=== PATIENT | female | born 1950 | race Caucasian/White ===

== ENCOUNTER → 2019-11-24 10:52 | Outpatient (BNVA) | payer MEDICARE, SELFPAY | PROVIDERS: Family Provider Nurse Practitioner; PCP Nurse Practitioner; Visit Provider Nurse Practitioner | DX: I10 Essential (primary) hypertension (principal) | CPT/HCPCS: 80053; 80061; 81000; 84443; 85025 ==

== ENCOUNTER → 2020-01-18 11:23 | Outpatient (BNVA) | payer MEDICARE, SELFPAY | PROVIDERS: Family Provider Nurse Practitioner; PCP Nurse Practitioner; Visit Provider Nurse Practitioner | DX: Z11.59 Encounter for screening for other viral diseases (principal) | CPT/HCPCS: 87635 ==

== ENCOUNTER → 2020-06-07 12:14 | Outpatient (BNVA) | payer MEDICARE, SELFPAY | PROVIDERS: Family Provider Nurse Practitioner; PCP Nurse Practitioner; Visit Provider Nurse Practitioner | DX: I10 Essential (primary) hypertension (principal); F41.9 Anxiety disorder, unspecified; E55.9 Vitamin D deficiency, unspecified | CPT/HCPCS: 80053; 80061; 82306; 82607; 84443; 85025 ==

== ENCOUNTER → 2020-06-21 12:00 | Outpatient (BNVA) | payer MEDICARE, SELFPAY | PROVIDERS: Family Provider Nurse Practitioner; PCP Nurse Practitioner; Visit Provider Nurse Practitioner | DX: L98.9 Disorder of the skin and subcutaneous tissue, unspecified (principal) | CPT/HCPCS: 88305 ==

== ENCOUNTER 2020-11-09 11:37 | Emergency (ER) | payer MEDICARE, SELFPAY ==
[2020-11-09 11:38] VITALS: BMI 24.7
--- NOTE | 2020-11-09 11:58 | XRR_ITS ---
PROCEDURE INFORMATION: Exam: XR Chest Exam date and time: 11/09/2020 11:58 AM Age: 70 years old Clinical indication: Cough and dyspnea; Additional info: Dyspnea/cough TECHNIQUE: Imaging protocol: XR of the chest. Views: 1 view. COMPARISON: CR Chest 2 views* [id number] 03/16/2018 11:56 AM FINDINGS: Lungs: Unremarkable. No consolidation. Pleural spaces: Unremarkable. No pleural effusion. No pneumothorax. Heart/Mediastinum: Unremarkable. No cardiomegaly. Bones/joints: Unremarkable. XR/XR chest 1V portable [id number] IMPRESSION: No acute findings.
[2020-11-09 12:34] LABS: Add Urine Microscopic? NO; Charge for UA Resulting for Rev
[2020-11-09 12:43] LABS: Urine Appearance Clear (CLEAR); Urine Color Straw (Yellow)
[2020-11-09 12:44] LABS: Bilirubin Urine Neg (Negative); Blood Urine Neg (Negative); Glucose Urine UA Norm (Normal); Ketones Urine Negative (Negative); Nitrate Urine Negative (Negative); Protein Urine Neg (Negative); Sulfosalicylic Acid Urine Negative (Negative); pH Urine 8 (5-7)
[2020-11-09 12:45] LABS: Leukocyte Esterase Urine Negative (Negative); Urobilinogen Urine Norm (Negative)
[2020-11-09 12:46] VITALS: BP 134/85; PULSE 95; RESP 13; O2SAT 99
[2020-11-09 12:52] LABS: Basophils % 0.5 %; Eosinophils # 0.1 10^3/uL (0.0-0.8); Eosinophils % 0.9 %; Hematocrit 40.1 % (37.0-47.0); Hemoglobin 13.5 g/dL (11.5-15.3); Lymphocytes # 1.7 10^3/uL (0.8-4.8); Lymphocytes % 21.2 %; Mean Corpuscular HGB Conc 33.7 g/dL (30.0-36.0); Mean Corpuscular Hemoglobin 31.5 pg (28.0-34.0); Mean Corpuscular Volume 93.7 fL (81-99); Mean Platelet Volume 9.1 fL (7.4-10.4); Monocytes # 0.7 10^3/uL (0.2-0.9); Monocytes % 8.6 %; Neutrophils # 5.52 10^3/uL (1.8-7.7); Neutrophils % 68.4 %; Nucleated Red Blood Cells % 0 %; Platelet Count 242 10^3/cmm (130-400); Red Blood Count 4.28 10^6/uL (4.1-5.3); Red Cell Distribution Width 12.4 % (12.1-15.1); White Blood Count 8.1 10^3/uL (4.0-10.0)
--- NOTE | 2020-11-09 13:03 | W.ED.WEAKNES ---
HPI - Weakness General: Chief complaint: Weakness Stated complaint: UNCONTROLLED HTN/ ANXIOUS/ VERTIGO Time Seen by Provider: 11/09/20 11:50 History of Present Illness: HPI Narrative: 70-year-old female presents to the emergency room with complaints of generalized weakness and elevated blood pressure. She states she felt what she described as a hot her crazy with blood pressure being elevated she took a clonidine and doxepin. States she feels much better now her symptoms have resolved she never had any difficulty with speech or swallowing she never had any chest pain today. She does states she has gotten chest pain in the past for which she takes nitro because it is related to her anxiety. She also describes the doxepin is slowing her heart down and the clonidine as a jump starting it. She denies any shortness of breath no fever sweats or chills no abdominal pain no dysuria urgency or frequency. She has no focal neurologic deficits. At the time I seen the patient she has no symptoms whatsoever they all resolved prior to arrival. She had a vague generalized weakness then but it resolved she thought as her blood pressure came down. MD Complaint: generalized weakness Onset (ago): hour(s) Duration: intermittent and improved Location: generalized Severity: mild Relieving factors: none Exacerbating factors: none Associated symptoms: Denies chest pain, chills, confusion, melena, decreased appetite, diaphoresis, dysuria, easy bruising, fever(s), headache(s), myalgias, nausea, rash, short of breath, syncope or vomiting Review of Systems Const: Denies: fever(s), chills or diaphoresis ENMT: Denies: throat pain, ear or mastoid pain, nasal discharge or nasal congestion Card: Denies: chest pain or syncope Resp: Denies: dyspnea, productive cough or non-productive cough GI: Denies: nausea, vomiting or melena : Denies: dysuria Skin/Breast: Denies: rash or pruritus Neuro: Denies: headache(s) or confusion Grabiel/Lymph: Denies: easy bruising PFS ED PFSH: Medical History (Updated 11/09/20 @ 13:46 by Yordy Cavanaugh DO) Anxiety Hypertension Risk for coronary artery disease between 10% and 20% in next 10 years Seborrhea capitis in adult Surgical History Hx of breast biopsy left Hx of colonoscopy 2000 Hx of tonsillectomy Family History Mother Cancer Blood cancer age 52 Denies family history of Diabetes Hypertension Social History Smoking and tobacco status: current every day smoker cigarettes Packs smoked per day: 1 Second hand smoke exposure: Yes Smoking risk assessment/counseling performed?: Yes Alcohol intake: current Alcohol intake frequency: 0-2 Drinks per Day Alcohol type: wine Desire information about alcohol rehabilitation?: No Counseling given: No Desire information about substance/drug rehabilitation?: No Counseling given: No Adopted: No Caregiver/support person: No Lives independently: Yes Household members: none Housing: House Marital status: / service: No Current occupational exposures/hazards: No History of recent travel: No Current gender identity: Female Physical Exam Const: COMMON NORMALS: no acute distress GENERAL APPEARANCE: cooperative and comfortable ORIENTATION/CONSCIOUSNESS: Yes awake, Yes oriented to person, Yes oriented to place and Yes oriented to time HENMT: COMMON NORMALS: normocephalic, atraumatic, hearing grossly normal bilaterally, external ears normal, EAC's normal, TM's normal bilaterally and Normal nasal mucous membranes and turbinates present HEAD & SCALP: normocephalic and atraumatic NOSE: Normal nasal mucous membranes and turbinates present EXTERNAL EAR: Yes external ears normal EXTERNAL AUDITORY CANAL: EAC's normal TYMPANIC MEMBRANE: TM's normal bilaterally Eye: COMMON NORMALS: Equal, round and reactive pupils present, EOMs intact bilaterally, conjunctivae normal and no scleral icterus CONJUNCTIVA: Yes conjunctivae normal PUPIL: Yes Equal, round and reactive pupils present Neck/C-Spine: COMMON NORMALS: full ROM, no lymphadenopathy, supple and no JVD Resp: COMMON NORMALS: normal respiratory effort, No retractions, No use of accessory muscles and clear to auscultation bilaterally AUSCULTATION: clear to auscultation bilaterally Cardio: COMMON NORMALS: no JVD, regular rate, regular rhythm and No murmurs present (Cardio) RATE: regular rate RHYTHM: regular rhythm GI: COMMON NORMALS: Soft to palpation and No hepatosplenomegaly present AUSCULTATION: Yes normoactive bowel sounds PALPATION: Yes Soft to palpation, No Tenderness to palpation present (GI), No Guarding due to palpation present (GI) and Yes No hepatosplenomegaly present Extremity: COMMON NORMALS: normal to inspection, capillary refill normal, no clubbing, cyanosis or edema, no calf tenderness and no pedal edema Neuro: SENSORIUM/ORIENTATION: Yes oriented to person, Yes oriented to place and Yes oriented to time Skin: COMMON NORMALS: no rashes or lesions noted GENERAL SKIN EXAM: no rashes or lesions noted Course Vital Signs: Vital signs: Vital Signs Pulse Rate 95 11/09/20 14:06 Respiratory Rate 13 11/09/20 14:06 Blood Pressure 134/85 11/09/20 14:06 Pulse Oximetry 99 11/09/20 14:06 MDM - Weakness MDM Narrative: Medical decision making narrative: Patient relatively asymptomatic at this point she has no focal symptoms her blood pressure is resolved. Will discharge home. Lab Data: Attestation: I reviewed the patient's lab results. Labs: Lab Results 11/09/20 11/09/20 11/09/20 Range/Units 12:30 12:46 12:46 WBC 8.1 (4.0-10.0) 10^3/ uL RBC 4.28 (4.1-5.3) 10^6/u L Hgb 13.5 (11.5-15.3) g/dL Hct 40.1 (37.0-47.0) % MCV 93.7 (81-99) fL MCH 31.5 (28.0-34.0) pg MCHC 33.7 (30.0-36.0) g/dL RDW 12.4 (12.1-15.1) % Plt Count 242 (130-400) 10^3/c mm MPV 9.1 (7.4-10.4) fL Neut % (Auto) 68.4 % Lymph % (Auto) 21.2 % [place] % (Auto) 8.6 % Eos % (Auto) 0.9 % Baso % (Auto) 0.5 % Neut # (Auto) 5.52 (1.8-7.7) 10^3/u L Lymph # (Auto) 1.7 (0.8-4.8) 10^3/u L [place] # (Auto) 0.7 (0.2-0.9) 10^3/u L Eos # (Auto) 0.1 (0.0-0.8) 10^3/u L Baso # (Auto) 0.0 (0.0-0.1) 10^3/u L Nucleated RBC % (a uto) 0 % Nucleated RBCs # 0.0 /100WBC Sodium (136-145) mmol/L Potassium (3.5-5.1) mmol/L Chloride (98-107) mmol/L Carbon Dioxide (22-29) mmol/L Anion Gap (5-19) BUN (8-23) mg/dL Creatinine (0.5-0.9) mg/dL GFR Calculation Glucose (65-115) mg/dL Calculated Osmolal ity (285-295) mOsm/k g Lactic Acid 1.1 (0.5-2.2) mmol/L Calcium (8.5-10.5) mg/dL Total Bilirubin (0.15-1.2) mg/dL AST (0-32) U/L ALT (0-33) U/L Alkaline Phosphata se (35-105) IU/L Creatine Kinase (26-192) U/L Total Protein (6.6-8.7) g/dL Albumin (3.5-5.2) g/dL Globulin (1.3-4.6) g/dL Lipase (13-60) U/L Urine Color Straw (Yellow) Urine Appearance Clear (CLEAR) Urine pH 8 H (5-7) Ur Specific Gravit y 1.010 (1.005-1.030) Urine Protein Neg (Negative) Urine Glucose (UA) Norm (Normal) Urine Ketones Negative (Negative) Urine Blood Neg (Negative) Urine Nitrate Negative (Negative) Urine Bilirubin Neg (Negative) Prot Sulfosalicyli c Acd Negative (Negative) Urine Urobilinogen Norm (Negative) mg/dL Ur Leukocyte Paty ase Negative (Negative) 11/09/20 Range/Units 12:46 WBC (4.0-10.0) 10^3/ uL RBC (4.1-5.3) 10^6/u L Hgb (11.5-15.3) g/dL Hct (37.0-47.0) % MCV (81-99) fL MCH (28.0-34.0) pg MCHC (30.0-36.0) g/dL RDW (12.1-15.1) % Plt Count (130-400) 10^3/c mm MPV (7.4-10.4) fL Neut % (Auto) % Lymph % (Auto) % [place] % (Auto) % Eos % (Auto) % Baso % (Auto) % Neut # (Auto) (1.8-7.7) 10^3/u L Lymph # (Auto) (0.8-4.8) 10^3/u L [place] # (Auto) (0.2-0.9) 10^3/u L Eos # (Auto) (0.0-0.8) 10^3/u L Baso # (Auto) (0.0-0.1) 10^3/u L Nucleated RBC % (a uto) % Nucleated RBCs # /100WBC Sodium 134 L (136-145) mmol/L Potassium 3.8 (3.5-5.1) mmol/L Chloride 97 L (98-107) mmol/L Carbon Dioxide 28 (22-29) mmol/L Anion Gap 12.8 (5-19) BUN 11 (8-23) mg/dL Creatinine 0.6 (0.5-0.9) mg/dL GFR Calculation Not Reportable Glucose 100 (65-115) mg/dL Calculated Osmolal ity 277 L (285-295) mOsm/k g Lactic Acid (0.5-2.2) mmol/L Calcium 8.4 L (8.5-10.5) mg/dL Total Bilirubin 0.3 (0.15-1.2) mg/dL AST 17 (0-32) U/L ALT 15 (0-33) U/L Alkaline Phosphata se 86 (35-105) IU/L Creatine Kinase 59 (26-192) U/L Total Protein 6.7 (6.6-8.7) g/dL Albumin 4.4 (3.5-5.2) g/dL Globulin 2.3 (1.3-4.6) g/dL Lipase 38 (13-60) U/L Urine Color (Yellow) Urine Appearance (CLEAR) Urine pH (5-7) Ur Specific Gravit y (1.005-1.030) Urine Protein (Negative) Urine Glucose (UA) (Normal) Urine Ketones (Negative) Urine Blood (Negative) Urine Nitrate (Negative) Urine Bilirubin (Negative) Prot Sulfosalicyli c Acd (Negative) Urine Urobilinogen (Negative) mg/dL Ur Leukocyte Paty ase (Negative) Discharge Plan Discharge Patient Disposition: Home Clinical Impression: Hypertension, Anxiety Condition: Stable Prescriptions: No Action nystatin 100,000 unit/gram cream 1 applic TOPICAL BID PRN (Reason: Rash) RF: 0 triamcinolone acetonide 0.1 % cream 1 applic TOPICAL BID PRN (Reason: Rash) RF: 0 amlodipine 10 mg tablet 10 mg PO DAILY Qty: 30 RF: 5 clonidine HCl 0.1 mg tablet 0.1 mg PO BID PRN (Reason: hypertensive emergency) Qty: 60 RF: 5 doxepin 10 mg capsule 10 mg PO TID PRN (Reason: anxiety) Qty: 90 RF: 5 imipramine HCl 50 mg tablet 50 mg PO BID Qty: 60 RF: 5 metoprolol succinate 100 mg tablet extended release 24 hr 100 mg PO DAILY Qty: 30 RF: 5 meclizine 25 mg tablet 25 mg PO TID PRN (Reason: dizziness) Qty: 90 RF: 0 mupirocin 2 % ointment 1 applic topical BID Qty: 22 RF: 0 venlafaxine [Effexor XR] 37.5 mg capsule,extended release 24hr 37.5 mg PO DAILY Qty: 30 RF: 2 nitroglycerin 0.4 mg tablet, sublingual 0.4 mg SUBLINGUAL Q5M Qty: 25 RF: 0 Wal-Zyr (cetirizine) 10 mg tablet 10 mg PO DAILY PRN (Reason: Allergy Symptoms) RF: 0 Discharge Orders: Discharge ED (Routine); Ordered 11/09/20 Ordered By: Yordy Cavanaugh Referrals: Edil Christianson, [employer] [facility] [Primary Care Provider] - Discharge Diet: Usual diet Discharge Activity: Increase activity as tolerated Patient Instructions: Opioid Safety Coding Level of Care Code ED Adjunct Mathematics Instructor for Chg Fwd Exam Comprehensive
[2020-11-09 13:10] LABS: Lactic Sepsis W/Reflex 1.1 mmol/L (0.5-2.2)
[2020-11-09 13:18] LABS: Alanine Aminotransferase 15 U/L (0-33); Albumin Level 4.4 g/dL (3.5-5.2); Alkaline Phosphatase 86 IU/L (35-105); Anion Gap 12.8 (5-19); Aspartate Amino Transferase 17 U/L (0-32); Blood Urea Nitrogen 11 mg/dL (8-23); Calcium 8.4 mg/dL (8.5-10.5); Carbon Dioxide 28 mmol/L (22-29); Chloride 97 mmol/L (98-107); Creatine Phosphokinase 59 U/L (26-192); Globulin 2.3 g/dL (1.3-4.6); Glucose 100 mg/dL (65-115); Lipase 38 U/L (13-60); Osmolality Calculated 277 mOsm/kg (285-295); Potassium 3.8 mmol/L (3.5-5.1); Sodium 134 mmol/L (136-145); Total Bilirubin 0.3 mg/dL (0.15-1.2); Total Protein 6.7 g/dL (6.6-8.7)
[2020-11-09 14:06] VITALS: BP 134/85; PULSE 95; RESP 13; O2SAT 99
== END 2020-11-09 14:07 | disposition home or self-care (01) ==
PROVIDERS: Emergency Provider Family Medicine; PCP Nurse Practitioner
DX: I10 Essential (primary) hypertension (principal); F41.9 Anxiety disorder, unspecified; F17.210 Nicotine dependence, cigarettes, uncomplicated
CPT/HCPCS: 36415; 71045; 80053; 81003; 82550; 83605; 83690; 85025; 99283

== ENCOUNTER → 2020-11-13 14:05 | Outpatient (BNVA) | payer MEDICARE, SELFPAY | PROVIDERS: PCP Nurse Practitioner; Visit Provider Nurse Practitioner | DX: I10 Essential (primary) hypertension (principal); F41.9 Anxiety disorder, unspecified; R42 Dizziness and giddiness; E78.2 Mixed hyperlipidemia | CPT/HCPCS: 80061 ==

== ENCOUNTER → 2021-06-04 14:30 | Outpatient (BNVA) | payer MEDICARE, SELFPAY | PROVIDERS: PCP Nurse Practitioner; Visit Provider Nurse Practitioner | DX: I10 Essential (primary) hypertension (principal); F41.9 Anxiety disorder, unspecified; K21.9 Gastro-esophageal reflux disease without esophagitis | CPT/HCPCS: 80053; 81000; 84443; 85025 ==

== ENCOUNTER 2021-11-12 11:46 | Emergency (ER) | payer MEDICARE, SELFPAY ==
[2021-11-12 12:00] VITALS: BP 118/83; PULSE 88; RESP 16; TEMP 36.9; O2SAT 95; BMI 24.9
--- NOTE | 2021-11-12 12:04 | W.ED.FALL ---
HPI - Fall General: Chief Complaint: Fall Stated Complaint: fall/ rib pain Time Seen by Provider: 11/12/21 12:04 History of Present Illness: 71-year-old female was brought in by family for concerns of injury sustained during a fall last . Patient has a wound to her right knee with some surrounding swelling and ecchymosis, patient has right anterior rib tenderness with inspiratory pain, and a injury to her left distal index finger that is healing. Associated symptoms-after fall: Denies chest pain Review of Systems General: Reports: 10 or more systems reviewed and unremarkable except in HPI and below Card: Denies: chest pain Resp: Reports: pain on inspiration Musc: Reports: joint pain (Right knee), joint swelling (Right knee) and other (Right anterior rib pain,) Skin/Breast: Reports: other (Abrasion to right knee) PFS ED PFSH: Medical History (Updated 11/12/21 @ 12:50 by NIKO Carlton) Anxiety Hypertension Risk for coronary artery disease between 10% and 20% in next 10 years Seborrhea capitis in adult Surgical History Hx of breast biopsy left Hx of colonoscopy 2000 Hx of tonsillectomy Family History Mother Cancer Blood cancer age 52 Denies family history of Diabetes Hypertension Social History Smoking and tobacco status: current every day smoker cigarettes Packs smoked per day: 1 Second hand smoke exposure: Yes Smoking risk assessment/counseling performed?: Yes Alcohol intake: current Alcohol intake frequency: 0-2 Drinks per Day Alcohol type: wine Desire information about alcohol rehabilitation?: No Counseling given: No Desire information about substance/drug rehabilitation?: No Counseling given: No Adopted: No Caregiver/support person: No Lives independently: Yes Household members: none Housing: House Marital status: / service: No Current occupational exposures/hazards: No History of recent travel: No Current gender identity: Female Physical Exam Const: COMMON NORMALS: alert HENMT: COMMON NORMALS: normocephalic and atraumatic HEAD & SCALP: normocephalic and atraumatic Neck/C-Spine: COMMON NORMALS: full ROM CERVICAL SPINE: No Cervical spine tenderness Chest: CHEST: Yes tenderness rib (Right lower anterior) Resp: COMMON NORMALS: normal respiratory effort Cardio: COMMON NORMALS: regular rate RATE: regular rate GI: COMMON NORMALS: Soft to palpation and non-tender PALPATION: Yes Soft to palpation Extremity: RIGHT LOWER EXTREMITY: Yes knee joint (Mild swelling and ecchymosis with anterior abrasion) Right knee: Yes inspection, Yes palpation and Yes ROM Neuro: SENSORIUM/ORIENTATION: Yes alert Skin: TRAUMA: abrasion (Right anterior knee) Course Vital Signs: Vital signs: Vital Signs Temperature 98.4 F 11/12/21 12:00 Pulse Rate 88 11/12/21 12:00 Respiratory Rate 16 11/12/21 12:00 Blood Pressure 118/83 11/12/21 12:00 Pulse Oximetry 95 11/12/21 12:00 Oxygen Delivery Me thod 11/12/21 12:00 MDM - Fall Medical Decision Making 71-year-old female comes in today for complaints of injury to the right rib and right knee. Patient had fallen 4 days ago last evening when she had walked outside to the garden. Since then patient has had increased pain to the right anterior rib with sensation of crepitus. Patient also reports some knee pain but has been up ambulating with a walker with minimal to no difficulty. On exam there is an abrasion to the right knee, tenderness on palpation of the right anterior ribs. Respirations are decreased in the bases. Vital signs are normal. Differential diagnosis includes but not limited to fracture, contusion, abrasions, pneumonia. Chest x-ray notes some mild atelectasis to the right lower lung and a fracture of the 10th rib. X-ray of the right knee notes a comminuted mildly displaced fracture of the patella. Reviewed exam with patient with recommendations for treatment with incentive spirometer and doxycycline to cover for infection of the abrasions to the right knee. We will have patient follow-up with orthopedics for further treatment and return to ER for new concerns. Lab Data Radiology Impressions Ribs X-Ray 11/12/21 12:05 IMPRESSION: Right 10th rib fracture. Knee X-Ray 11/12/21 12:13 IMPRESSION: Mildly displaced comminuted fracture of the patella. Discharge Plan Discharge Patient Disposition: Home Clinical Impression: Fall Qualifiers: Encounter type: initial encounter Qualified Code(s): W19.XXXA - Unspecified fall, initial encounter Closed rib fracture Qualifiers: Encounter type: initial encounter Rib fracture type: single rib Laterality: right Qualified Code(s): S22.31XA - Fracture of one rib, right side, initial encounter for closed fracture Fracture of patella, closed Qualifiers: Encounter type: initial encounter Fracture morphology: comminuted Fracture alignment: nondisplaced Laterality: right Qualified Code(s): S82.044A - Nondisplaced comminuted fracture of right patella, initial encounter for closed fracture Condition: Stable Prescriptions: New doxycycline monohydrate 100 mg capsule 100 mg PO BID 10 Days Qty: 20 0RF No Action nystatin 100,000 unit/gram cream 1 applic TOPICAL BID PRN (Reason: Rash) triamcinolone acetonide 0.1 % cream 1 applic TOPICAL BID PRN (Reason: Rash) clonidine HCl 0.1 mg tablet 0.1 mg PO BID PRN (Reason: hypertensive emergency) Qty: 60 5RF meclizine 25 mg tablet 25 mg PO TID PRN (Reason: dizziness) Qty: 90 0RF venlafaxine [Effexor XR] 37.5 mg capsule,extended release 24hr 37.5 mg PO .2 times day Qty: 60 5RF amlodipine 10 mg tablet 10 mg PO DAILY Qty: 30 5RF doxepin 10 mg capsule 10 mg PO TID PRN (Reason: anxiety) Qty: 90 5RF imipramine HCl 50 mg tablet 50 mg PO BID Qty: 60 5RF metoprolol succinate 100 mg tablet extended release 24 hr 100 mg PO DAILY Qty: 30 5RF famotidine [Pepcid] 20 mg tablet 20 mg PO BID Qty: 60 2RF mupirocin 2 % ointment 1 applic topical BID Qty: 22 0RF nitroglycerin 0.4 mg tablet, sublingual 0.4 mg SUBLINGUAL Q5M Qty: 25 0RF Rx Instructions: chest pain as directed Wal-Zyr (cetirizine) 10 mg tablet 10 mg PO DAILY PRN (Reason: Allergy Symptoms) Discharge Orders: Discharge ED (Routine); Ordered 11/12/21 Ordered By: Josef Webster Referrals: Edil Christianson, [employer] [Primary Care Provider] - Discharge Diet: Usual diet Patient Instructions: Rib Fracture (ED), Patellar Fracture (ED) Activity Restrictions/Additional Instructions: Continue using walker for ambulation. Use acetaminophen, ice or heat for further pain relief. Drink plenty of water with antibiotic twice daily for the next 7 to 10 days. Follow-up with primary care for new concerns. Return to ED for worsening symptoms such as fever greater than 100.4, increasing redness and swelling of the knee, or increased shortness of breath. Coding Level of Care Code ED Certified Prosthetist/Orthotist for Farrah Fwd Exam Comprehensive
--- NOTE | 2021-11-12 12:05 | XR_ITS ---
WS: [id number] XR ribs RT mn 3V w CXR1V [id number] REASON FOR EXAM: fall injury, rib pain, include CXR FINDINGS: Minimally displaced anterolateral right 10th rib fracture. No pleural fluid or pneumothorax. No other acute chest abnormality. XR/XR ribs RT mn 3V w CXR1V [id number] IMPRESSION: Right 10th rib fracture.
--- NOTE | 2021-11-12 12:13 | XRR_ITS ---
PROCEDURE INFORMATION: Exam: XR Right Knee Exam date and time: 11/12/2021 12:29 PM Age: 71 years old Clinical indication: Injury or trauma; Fall; Blunt trauma; Knee; Right; Additional info: Fall injury TECHNIQUE: Imaging protocol: Radiologic exam of the Right knee. Views: 3 views. COMPARISON: No relevant prior studies available. FINDINGS: Bones/joints: There is a comminuted fracture of the patella with about 2.5 mm of maximum displacement. The distal femur and proximal tibia are intact. Soft tissues: Normal. XR/XR knee RT 3V* [id number] IMPRESSION: Mildly displaced comminuted fracture of the patella.
[2021-11-12] MEDS: doxycycline 100 mg Tablet PO (13:38)
--- NOTE | 2021-11-13 16:20 | DCPLANNER ---
Addendum entered by Molly Momin 11/26/21 13:33: Patient had a follow up appointment scheduled for 11.18.21 with ortho - patient did attend appointment. Addendum entered by Molly Momin 11/15/21 13:04: Patient has a follow up appointment scheduled for Thursday, November 18, 2021 at 8:[address] Montes at ortho. Clinic will call patient with appointment information. Original Note: manager multimedia had message to schedule a follow up appointment for patient with ortho. manager multimedia sent patients information to the front office staff at ortho. Patients information will be printed. Clinic will call patient with appointment information.
== END 2021-11-12 13:38 | disposition home or self-care (01) ==
PROVIDERS: Emergency Provider Nurse Practitioner Family; PCP Nurse Practitioner
DX: S22.31XA Fracture of one rib, right side, initial encounter for closed fracture (principal); S82.044A Nondisplaced comminuted fracture of right patella, initial encounter for closed fracture; I10 Essential (primary) hypertension; F17.210 Nicotine dependence, cigarettes, uncomplicated; W19.XXXA Unspecified fall, initial encounter
CPT/HCPCS: 71101; 73562; 99283

== ENCOUNTER → 2021-11-18 08:35 | Outpatient (BNVA) | payer MEDICARE, SELFPAY | PROVIDERS: PCP Nurse Practitioner; Visit Provider Specialist | DX: S82.044A Nondisplaced comminuted fracture of right patella, initial encounter for closed fracture (principal); W01.0XXA Fall on same level from slipping, tripping and stumbling without subsequent striking against object, initial encounter; Y93.H2 Activity, gardening and landscaping | CPT/HCPCS: 27520; 73562; 99203 ==

== ENCOUNTER 2021-11-18 14:44 | Outpatient (CLI) | payer MEDICARE, SELFPAY | END 2021-11-18 14:45 | disposition home or self-care (01) | LOC: SPT 14:45 | PROVIDERS: PCP Nurse Practitioner; Visit Provider Specialist | DX: Z46.89 Encounter for fitting and adjustment of other specified devices (principal); S82.001D Unspecified fracture of right patella, subsequent encounter for closed fracture with routine healing; X58.XXXD Exposure to other specified factors, subsequent encounter | CPT/HCPCS: 97760; L1812 ==

== ENCOUNTER → 2021-11-27 14:43 | Outpatient (BNVA) | payer MEDICARE, SELFPAY | PROVIDERS: PCP Nurse Practitioner; Visit Provider Nurse Practitioner | DX: Z12.39 Encounter for other screening for malignant neoplasm of breast (principal); Z78.0 Asymptomatic menopausal state; E78.2 Mixed hyperlipidemia; I10 Essential (primary) hypertension; F41.9 Anxiety disorder, unspecified; K21.9 Gastro-esophageal reflux disease without esophagitis | CPT/HCPCS: 80053; 80061; 84443; 85025 ==

== ENCOUNTER → 2021-12-11 15:30 | Outpatient (BNVA) | payer MEDICARE, SELFPAY | PROVIDERS: PCP Nurse Practitioner; Visit Provider Specialist | DX: S82.044D Nondisplaced comminuted fracture of right patella, subsequent encounter for closed fracture with routine healing (principal); W01.0XXD Fall on same level from slipping, tripping and stumbling without subsequent striking against object, subsequent encounter | CPT/HCPCS: 73560; 99024 ==

== ENCOUNTER → 2022-01-08 11:47 | Outpatient (BNVA) | payer MEDICARE, SELFPAY | PROVIDERS: PCP Nurse Practitioner; Visit Provider Nurse Practitioner | DX: E87.1 Hypo-osmolality and hyponatremia (principal) | CPT/HCPCS: 80048 ==

== ENCOUNTER → 2022-01-15 14:04 | Outpatient (BNVA) | payer MEDICARE, SELFPAY | PROVIDERS: PCP Nurse Practitioner; Visit Provider Specialist | DX: S82.044D Nondisplaced comminuted fracture of right patella, subsequent encounter for closed fracture with routine healing (principal); X58.XXXD Exposure to other specified factors, subsequent encounter | CPT/HCPCS: 73562; 99024 ==

== ENCOUNTER 2022-01-22 12:43 | Outpatient (CLI) | payer MEDICARE, SELFPAY ==
--- NOTE | 2022-01-22 12:48 | XR_ITS ---
WS: [id number] DEXA (DUAL ENERGY X-RAY ABSORPTIOMETRY) Bone mineral density was performed using a GeoVax machine. HISTORY: Z78.0 - Asymptomatic menopausal state COMPARISON: None available. Lumbar spine BMD (L1-L4): 0.786 g/cm2 T score: -3.3 Z score: -1.6 Total hip BMD: Left: 0.627 g/cm2. T score: -3.0 Z score: -1.4 Right: 0.618 g/cm2. T score: -3.1 Z score: -1.4 10 year probability of a major osteoporotic fracture is 37.7%. XR/XR DEXA axial skeleton* [id number] IMPRESSION: OSTEOPOROSIS based upon the WHO classification for females.
--- NOTE | 2022-01-22 13:06 | MM_ITS ---
WS: [id number] BILATERAL 3D TOMOSYNTHESIS DIGITAL SCREENING MAMMOGRAPHY WITH CAD CLINICAL INFORMATION: SCREEN HISTORY: Screening mammogram. No current complaints. COMPARISON: 2016. TECHNIQUE: Bilateral CC and MLO views. FINDINGS: The breasts are composed of heterogeneous fibroglandular density tissue, which can limit the detectio n of small underlying mass lesions. Nodular breast tissue LEFT breast cysts in appearance to 2016. Ar chitectural distortion upper outer LEFT breast due to prior lumpectomy is unchanged. This was previou sly evaluated with ultrasound. No suspicious mass, asymmetry, calcifications, or architectural distor tion. No evidence of malignancy. Lucent centered calcification RIGHT breast. Vascular calcification. MM/[place] [id number] IMPRESSION: BI-RADS: 2-Benign FOLLOW UP: 1 Year Follow-up Recommend return to annual screening mammography.
== END 2022-01-22 12:44 | disposition home or self-care (01) ==
LOC: RAD 12:43
PROVIDERS: PCP Nurse Practitioner; Visit Provider Nurse Practitioner
DX: Z12.31 Encounter for screening mammogram for malignant neoplasm of breast (principal); Z78.0 Asymptomatic menopausal state; M81.0 Age-related osteoporosis without current pathological fracture
CPT/HCPCS: 77063; 77067; 77080

== ENCOUNTER → 2022-02-25 15:38 | Outpatient (BNVA) | payer MEDICARE, SELFPAY | PROVIDERS: PCP Nurse Practitioner; Visit Provider Nurse Practitioner | DX: L98.9 Disorder of the skin and subcutaneous tissue, unspecified (principal) | CPT/HCPCS: 88304 ==

== ENCOUNTER → 2022-06-11 09:54 | Outpatient (BNVA) | payer MEDICARE, SELFPAY | PROVIDERS: PCP Nurse Practitioner; Visit Provider Nurse Practitioner Family | DX: R39.9 Unspecified symptoms and signs involving the genitourinary system (principal); K59.00 Constipation, unspecified; E87.1 Hypo-osmolality and hyponatremia; I10 Essential (primary) hypertension | CPT/HCPCS: 74018; 80053; 80061; 81000; 84443; 85025 ==

== ENCOUNTER → 2022-10-30 11:06 | Outpatient (BNVA) | payer MEDICARE, SELFPAY | PROVIDERS: PCP Nurse Practitioner; Visit Provider Nurse Practitioner Family | DX: E78.2 Mixed hyperlipidemia (principal) | CPT/HCPCS: 80053; 80061; 84443; 85025 ==

== ENCOUNTER → 2022-12-03 11:09 | Outpatient (BNVA) | payer MEDICARE, SELFPAY | PROVIDERS: PCP Nurse Practitioner; Visit Provider Nurse Practitioner Family | DX: S40.262A Insect bite (nonvenomous) of left shoulder, initial encounter (principal); S30.860A Insect bite (nonvenomous) of lower back and pelvis, initial encounter; L82.0 Inflamed seborrheic keratosis; L57.0 Actinic keratosis; L57.8 Other skin changes due to chronic exposure to nonionizing radiation; S50.912A Unspecified superficial injury of left forearm, initial encounter; L81.4 Other melanin hyperpigmentation; Z85.828 Personal history of other malignant neoplasm of skin; Y99.9 Unspecified external cause status | CPT/HCPCS: 17000; 17003; 17110; 99204 ==

== ENCOUNTER 2023-02-24 19:49 | Emergency (ER) | payer MEDICARE, SELFPAY ==
--- NOTE | 2023-02-24 19:52 | XRR_ITS ---
PROCEDURE INFORMATION: Exam: XR Left Wrist Exam date and time: 02/24/2023 8:58 PM Age: 72 years old Clinical indication: Injury or trauma; Fall; Fracture, traumatic injury; Closed fracture; Wrist; Left; Additional info: Fall pain TECHNIQUE: Imaging protocol: Radiologic exam of the left wrist. Views: 3 or more views. COMPARISON: No relevant prior studies available. FINDINGS: Bones/joints: Dorsally angulated fracture of the distal left radial metaphysis. Minimally displaced avulsion fracture of the ulnar styloid. The bones are osteopenic. Soft tissues: Normal. XR/XR wrist LT min 3V* [id number] IMPRESSION: 1. Dorsally angulated fracture of the distal left radial metaphysis. 2. Minimally displaced avulsion fracture of the ulnar styloid.
[2023-02-24 20:06] VITALS: BP 113/74; PULSE 70; RESP 16; TEMP 36.5; O2SAT 93; BMI 24.7
--- NOTE | 2023-02-24 20:20 | ED_ITS ---
HPI - Extremity Problem General: Chief complaint: Extremity Injury, Upper Stated complaint: fell, left wrist injury Time Seen by Provider: 02/24/23 19:59 History of Present Illness: 72-year-old female comes in today with injury to the left wrist. Patient reports she was walking across her yard when she tripped and fell catching herself with outstretched arms. Patient injured her left wrist and has pain and discomfort there. No obvious deformity is noted to the wrist but there is radial swelling and tenderness. Patient takes medications for blood pressure, GERD, mental health disorder, constipation,. Patient is currently a tobacco nicotine every day smoker. Review of Systems General: Reports: 10 or more systems reviewed and unremarkable except in HPI and below Musc: Reports: extremity pain and extremity swelling PFSH ED PFSH: Medical History Anxiety Colon cancer screening History of nonmelanoma skin cancer Hypertension Risk for coronary artery disease between 10% and 20% in next 10 years Seborrhea capitis in adult Surgical History Hx of breast biopsy left Hx of colonoscopy 2000 Hx of tonsillectomy Family History Mother Cancer Blood cancer age 52 Denies family history of Diabetes Hypertension Social History Smoking and tobacco/nicotine status: current every day tobacco/nicotine user cigarettes Packs smoked per day: 1 Second hand smoke exposure: Yes Alcohol intake: current Alcohol intake frequency: 0-2 Drinks per Day Alcohol type: wine Substance/Drug Use: unknown Adopted: No Caregiver/support person: No Lives independently: Yes Household members: none Housing: House Marital status: / service: No Current occupational exposures/hazards: No Do you think of yourself as: Straight/Heterosexual Current gender identity: Female Physical Exam Const: COMMON NORMALS: alert HENMT: COMMON NORMALS: normocephalic HEAD & SCALP: normocephalic Neck/C-Spine: COMMON NORMALS: full ROM Resp: COMMON NORMALS: normal respiratory effort and clear to auscultation bilaterally AUSCULTATION: clear to auscultation bilaterally Cardio: COMMON NORMALS: regular rate and regular rhythm RATE: regular rate RHYTHM: regular rhythm Back/Pelvis: COMMON NORMALS: thoracic and lumbar spine normal to inspection Extremity: LEFT UPPER EXTREMITY: Yes wrist (Radial tenderness and swelling, positive pedal pulses and sensation) Left wrist: Yes neurovascular exam Neuro: SENSORIUM/ORIENTATION: Yes alert Course Vital Signs: Vital signs: Vital Signs Temperature 97.7 F 02/24/23 20:06 Pulse Rate 71 02/24/23 20:49 Respiratory Rate 16 02/24/23 20:49 Blood Pressure 121/70 02/24/23 20:49 Pulse Oximetry 98 02/24/23 20:49 Oxygen Delivery Me thod Room Air 02/24/23 20:38 MDM - Extremity (Nontraumatic) Medical Decision Making 72-year-old female comes in today with injury to the left wrist. On exam patient has some swelling and tenderness to the radial aspect of her wrist with some mild swelling. Patient has strong pulses and distal sensation is intact. Range of motion is limited due to pain and discomfort. Differential diagnosis includes not limited to fracture, dislocation, sprain. X-ray noted a distal radial fracture, ulnar styloid fracture. Mild dorsal angulation was noted to the fracture. Patient was placed in a volar splint. Case management was requested to assist with follow-up appointment with orthopedics. Patient and family both reported understanding of care plan and need for follow-up or return to the ER. Lab Data Radiology Impressions Wrist X-Ray 02/24/23 19:52 IMPRESSION: 1. Dorsally angulated fracture of the distal left radial metaphysis. 2. Minimally displaced avulsion fracture of the ulnar styloid. All radiology interpretation(s) finalized by discharge Discharge Plan Discharge Patient Disposition: Home Clinical Impression: Radial fracture Qualifiers: Encounter type: initial encounter Radius location: distal Fracture type: closed Fracture morphology: other fracture Laterality: left Qualified Code(s): S52.592A - Other fractures of lower end of left radius, initial encounter for closed fracture Condition: Stable Prescriptions: No Action nystatin 100,000 unit/gram cream 1 applic TOPICAL BID PRN (Reason: Rash) triamcinolone acetonide 0.1 % cream 1 applic TOPICAL BID PRN (Reason: Rash) meclizine 25 mg tablet 25 mg PO TID PRN (Reason: dizziness) Qty: 90 0RF mupirocin 2 % ointment 1 applic topical BID Qty: 22 0RF doxycycline hyclate 100 mg capsule 100 mg PO BID Qty: 14 0RF venlafaxine [Effexor XR] 37.5 mg capsule,extended release 24hr 37.5 mg PO .2 times day Qty: 60 5RF metoprolol succinate 100 mg tablet extended release 24 hr 100 mg PO DAILY Qty: 30 5RF famotidine [Pepcid] 20 mg tablet 20 mg PO BID Qty: 60 5RF doxepin 10 mg capsule 10 mg PO TID PRN (Reason: anxiety) Qty: 90 5RF clonidine HCl 0.1 mg tablet 0.1 mg PO BID PRN (Reason: hypertensive emergency) Qty: 60 5RF amlodipine 10 mg tablet 10 mg PO DAILY Qty: 30 5RF imipramine HCl 50 mg tablet 50 mg PO BID Qty: 60 5RF nitroglycerin 0.4 mg tablet, sublingual 0.4 mg SUBLINGUAL Q5M Qty: 25 0RF Rx Instructions: chest pain as directed sodium chloride 1 gram tablet 1,000 mg PO DAILY Qty: 30 2RF calcium carbonate-vitamin D3 [Os-Davie 500 + D3] 500 mg-15 mcg (600 unit) tablet 1 tab PO .2 times day Qty: 60 5RF lactulose 10 gram/15 mL (15 mL) solution 20 g PO BID 2 Days Qty: 120 0RF polyethylene glycol 3350 [Miralax] 17 gram/dose powder 17 g PO DAILY Qty: 510 2RF Discharge Orders: Discharge ED (Routine); Ordered 02/24/23 Ordered By: Josef Webster Referrals: Edil Christianson, [facility] [Primary Care Provider] - Discharge Diet: Usual diet Discharge Activity: Increase activity as tolerated Patient Instructions: Wrist Fracture in Adults (ED) Activity Restrictions/Additional Instructions: Keep splint clean and dry. Case management will contact you regarding follow-up appointment with orthopedics office. Use acetaminophen or ibuprofen as needed for pain. Use ice packs for further pain relief. Follow-up with primary care as needed. Return to ED for new concerns. Coding Level of Care Code ED Certified Ethical Hacker for Farrah Stringer
[2023-02-24 20:38] VITALS: RESP 18; O2SAT 98
[2023-02-24] MEDS: acetaminophen 500 mg Tablet 1000 MG PO (20:48)
[2023-02-24 20:49] VITALS: BP 121/70; PULSE 71; RESP 16; O2SAT 98
--- NOTE | 2023-02-25 08:59 | DCPLANNER ---
Message sent to Ortho for a follow up on a distal radial fx.
== END 2023-02-24 20:50 | disposition home or self-care (01) ==
PROVIDERS: Emergency Provider Nurse Practitioner Family; PCP Nurse Practitioner
DX: S52.592A Other fractures of lower end of left radius, initial encounter for closed fracture (principal); S59.292A Other physeal fracture of lower end of radius, left arm, initial encounter for closed fracture; S52.612A Displaced fracture of left ulna styloid process, initial encounter for closed fracture; F17.210 Nicotine dependence, cigarettes, uncomplicated; I10 Essential (primary) hypertension; W01.0XXA Fall on same level from slipping, tripping and stumbling without subsequent striking against object, initial encounter
CPT/HCPCS: 29125; 73110; 99283

== ENCOUNTER → 2023-02-25 14:48 | Outpatient (BNVA) | payer MEDICARE, SELFPAY | PROVIDERS: PCP Nurse Practitioner; Referring Provider Nurse Practitioner Family; Visit Provider Nurse Practitioner | DX: S52.532A Colles' fracture of left radius, initial encounter for closed fracture; S52.612A Displaced fracture of left ulna styloid process, initial encounter for closed fracture; W01.0XXA Fall on same level from slipping, tripping and stumbling without subsequent striking against object, initial encounter | CPT/HCPCS: 25530; 25600; 29075; 73100; 99214 ==

== ENCOUNTER → 2023-03-11 13:59 | Outpatient (BNVA) | payer MEDICARE, SELFPAY | PROVIDERS: PCP Nurse Practitioner; Visit Provider Nurse Practitioner | DX: S52.532D Colles' fracture of left radius, subsequent encounter for closed fracture with routine healing; S52.612D Displaced fracture of left ulna styloid process, subsequent encounter for closed fracture with routine healing; W01.0XXD Fall on same level from slipping, tripping and stumbling without subsequent striking against object, subsequent encounter | CPT/HCPCS: 73110; 99024 ==

== ENCOUNTER → 2023-03-25 14:29 | Outpatient (BNVA) | payer MEDICARE, SELFPAY | PROVIDERS: PCP Nurse Practitioner; Visit Provider Nurse Practitioner | DX: S52.532A Colles' fracture of left radius, initial encounter for closed fracture; S52.612A Displaced fracture of left ulna styloid process, initial encounter for closed fracture; W01.0XXA Fall on same level from slipping, tripping and stumbling without subsequent striking against object, initial encounter | CPT/HCPCS: 73110; 99024 ==

== ENCOUNTER 2023-03-26 13:18 | Day surgery (SDC) | payer MEDICARE, SELFPAY ==
[2023-03-26] VITALS (15 sets, daily range): BP systolic 105–170; BP diastolic 57–94; PULSE 60–79; RESP 15–18; TEMP 36.1–36.4; O2SAT 92–100
--- NOTE | 2023-03-26 | XR_ITS ---
WS: [id number] INTRAOPERATIVE TECHNIQUE: 3 Spot fluoroscopic images for intraoperative purposes. FLUOROSCOPY TIME: 88.9 seconds CLINICAL INFORMATION: ALEX PICS COMPARISON: None. FINDINGS: Intraoperative plate and screw fixation distal radius. Hardware appears in good position. IMPRESSION: Images obtained for intraoperative purposes.
[2023-03-26] MEDS: gabapentin 300 mg Capsule PO (13:48)
[2023-03-26] MEDS: CELEcoxib 200 mg Capsule 400 MG PO (13:48)
[2023-03-26] MEDS: acetaminophen 1,000 MG/100 ML PIGGYBACK 400 MG IV (13:48)
[2023-03-26] MEDS: sodium chloride 0.9% 1,000 ML 30 ML IV (13:49)
--- NOTE | 2023-03-26 14:44 | P.ANESASSM_ITS ---
Pre-Anesthetic Assessment Height/Weight: Height 1.6 m Weight 66.224 kg Temp Pulse Resp BP Pulse Ox O2 Del Method 97 F L 79 18 136/86 97 Room Air 03/26/23 13:25 03/26/23 13:25 03/26/23 13:25 03/26/23 13:25 03/26/23 13:25 03/26/23 13:43 Operation Date: 03/26/23 14:55 Proposed Procedures p ORIF Wrist ORIF Distal Radius(Left) - America Montes MD Familial anesthetic complications: none Was Beta Danyel taken within 24 hours: Yes Was Clonidine taken within 24 hours: Yes Last intake: Intake Last Liquid Date 03/26/23 Last Liquid Time 08:30 Last Solid Date 03/25/23 Last Solid Time 18:00 Social Alcohol and Tobacco Exam alert, oriented x 3 and regular rate & rhythm Airway Submandibular: within normal limits Cervical ROM: within normal limits Mallampati: Class II Dentition: full Pulmonary Chronic Obstructive Pulmonary Disease CV/HEM Hypertension GI Gastroesophageal Reflux Disease Metabolic Hyperlipidemia Neuropsych Anxiety and Depression Anesthetic Plan ASA status: 3 Anesthesia: General and Regional (specify below) (Discussed left supraclavicular blk) Medications/Allergies Home Medications Medication Instructions Recorded Confirmed Last Taken Type triamcinolone acetonide 0.1 % 1 applic topical BID PRN Rash 04/14/19 03/26/23 03/24/23 History topical cream nitroglycerin 0.4 mg sublingual 0.4 mg sublingual Q5M #25 tabs 06/22/19 03/26/23 Unknown Rx tablet calcium carbonate 500 mg-vitamin 1 tab PO .2 times day #60 tabs 01/28/22 03/26/23 03/25/23 Rx D3 15 mcg (600 unit) tablet (Os-Davie 500 + D3) polyethylene glycol 3350 17 17 g PO DAILY #510 grams 06/11/22 03/26/23 Unknown Rx gram/dose oral powder (Miralax) amlodipine 10 mg tablet 10 mg PO DAILY #30 tabs 10/30/22 03/26/23 03/26/23 Rx clonidine HCl 0.1 mg tablet 0.1 mg PO BID PRN hypertensive 10/30/22 03/26/23 Unknown Rx emergency #60 tabs doxepin 10 mg capsule 10 mg PO TID PRN anxiety #90 caps 10/30/22 03/26/23 03/26/23 Rx famotidine 20 mg tablet (Pepcid) 20 mg PO BID #60 tabs 10/30/22 03/26/23 03/25/23 Rx imipramine HCl 50 mg tablet 50 mg PO BID #60 tabs 10/30/22 03/26/23 03/25/23 Rx metoprolol succinate 100 mg 100 mg PO DAILY #30 tabs 10/30/22 03/26/23 03/26/23 Rx tablet,extended release 24 hr venlafaxine 37.5 mg 37.5 mg PO .2 times day #60 caps 10/30/22 03/26/23 03/26/23 Rx capsule,extended release 24 hr (Effexor XR) Allergies Allergy/AdvReac Type Severity Reaction Status Date / Time ciprofloxacin Allergy rapid Verified 03/25/23 15:05 heart beat Penicillins Allergy swelling Verified 03/25/23 15:05 streptomycin Allergy rash Verified 03/25/23 15:05 Sulfa (Sulfonamide Allergy rash Verified 03/25/23 15:05 Antibiotics) ibandronate sodium AdvReac Severe ADR-Muscle Verified 03/25/23 15:05 [From Andres] Pain Current Medications Generic Name Dose Route Start Last Admin Trade Name Freq PRN Reason Stop Dose Admin Sodium Chloride 1,000 mls @ 30 mls/hr 03/26/23 13:30 03/26/23 13:49 Sodium Chloride 0.9% IV 03/27/23 13:29 30 mls/hr .Q24H ROBY Administration PFSH Anesthesia Medical History Fracture of ulnar styloid Distal radius fracture, left Colon cancer screening History of nonmelanoma skin cancer Risk for coronary artery disease between 10% and 20% in next 10 years Anxiety Hypertension Seborrhea capitis in adult Surgical History Hx of breast biopsy left Hx of tonsillectomy Hx of colonoscopy 1999 Family History Mother Cancer Blood cancer age 52 Denies family history of Diabetes Hypertension Social History Smoking and tobacco/nicotine status: current every day tobacco/nicotine user cigarettes Packs smoked per day: 1 Second hand smoke exposure: Yes Alcohol intake: current Alcohol intake frequency: 0-2 Drinks per Day Alcohol type: wine Substance/Drug Use: unknown Adopted: No Caregiver/support person: No Lives independently: Yes Household members: none Housing: House Marital status: / service: No Current occupational exposures/hazards: No Do you think of yourself as: Straight/Heterosexual Current gender identity: Female Data Anesthesia Cardiac Studies: No Data to Display
--- NOTE | 2023-03-26 15:50 | W.PM.OPSUD ---
Surgery/Procedure H&P Update DATE OF PROCEDURE: March 26, 2023 DATE H&P PERFORMED: 03/25/23 H&P UPDATE INFORMATION: I have reviewed H&P completed within last 30 days, I have examined patient prior to procedure, No changes to prior documentation and H&P is in [facility] EMR on date indicated PLANNED PROCEDURE: Operation Date: 03/26/23 14:55 Proposed Procedures p ORIF Wrist ORIF Distal Radius(Left) - America Montes MD Related Problem List Diagnoses (1) Distal radius fracture, left: Qualifiers: Encounter type: initial encounter Fracture type: closed Fracture morphology: Colles' Qualified Code(s): S52.532A - Colles' fracture of left radius, initial encounter for closed fracture (2) Fracture of ulnar styloid: Qualifiers: Encounter type: initial encounter Fracture type: closed Fracture alignment: displaced Laterality: left Qualified Code(s): S52.612A - Displaced fracture of left ulna styloid process, initial encounter for closed fracture
[2023-03-26] MEDS: clindamycin 600 MG/50 ML PREMIX 100 MG IV (15:59)
[2023-03-26] MEDS: BUPivacaine 0.5% INJ 10 mL INJECTION (16:36)
[2023-03-26] MEDS: vancomycin 1,000 MG SDV 1000 MG XX (16:37)
[2023-03-26] MEDS: fentaNYL 50 mcg/mL INJ 2mL IVP (18:28)
--- NOTE | 2023-03-26 19:33 | PM.OP ---
Operative Report Date of procedure: March 26, 2023 Pre-op diagnosis: Comminuted left distal radius fracture with early malunion Post-op diagnosis: Comminuted left distal radius fracture with early malunion Post-op findings: Early healing with angulated position left distal radius fracture Procedure done: Open reduction internal fixation left distal radius fracture utilizing Sera volar wrist plate and DBM putty Implants: The Sera distal radius plate 3 hole extra short narrow for the left wrist with locking and 1 nonlocking screw Breaks DBM plus paste with cancellous Specimens removed/disposition: None Surgeon: America Montes MD Resident Care Assistant: [facility] operating room technicians Anesthesia: General (Per LMA, ASA 3) Estimated blood loss (mL): 2 Tourniquet time (min): 74 (At 250 mmHg) IV fluids (mL): 1,100 Urine output (mL): 0 (No Byers) Complications: None Findings: Early malunion left distal radius fracture Condition: stable Disposition: same day (Then discharged to home) Brief History: This is a 72-year-old woman who presents following a left wrist fracture. She was crossing her yard when she tripped and fell. She caught herself on her outstretched hand. The date of injury was 02/24/2023. The patient had been doing well, however, she was seen in the office on March 25, and at that time, she was having some pain in the wrist. She noted waking up pulling on her cast and twisting it. Repeat imaging demonstrated that there had been dorsal angulation of the distal fragment. After discussion, we elected to proceed with open reduction internal fixation and takedown of the early malunion. Risks and complications were discussed in the office and consents were signed. Procedure: Patient was brought to the operating theater and after undergoing adequate general anesthesia per LMA, ASA 3, the splint which was present on the left wrist was removed. The arm was exsanguinated, and the tourniquet was elevated to 250 mmHg for a total tourniquet time of 74 minutes. The patient was also given Ancef 2 g preoperatively prior to her open reduction internal fixation. The arm was then prepped and draped with DuraPrep in usual fashion with the arm draped free. A surgical pause was performed. At the time, the surgical pause, we confirmed the site and side of surgery. We also confirmed the patient's identity, appropriate and timely administration of preoperative antibiotics and preoperative surgical markings. Fluoroscopy was used throughout the surgical procedure. The fracture pattern was marked out on the patient's arm with a marker. Incision was then made appropriate to begin slightly distal to the distal end of the radius continuing across the fracture. Fluoroscopy was used to determine appropriate plate size, and this was an extra short narrow left Breaks volar distal radius plate. Dissection continued through skin and soft tissues using a scalpel. Essentially, the fracture made its own plane through the soft tissues. After initial skin incision, we were able to open the soft tissues primarily with just my finger. Elevation was accomplished of soft tissues off the distal radius and radial shaft. Retractors were placed. Manipulation of the fracture using a [place] and osteotomes was accomplished and we were able to significantly improve the length and alignment of the distal radius. The chosen plate was a Breaks 3-hole extra short narrow, and this was attached with a combination of 1 nonlocking screw in the oblong hole and the remainder of the screws were locking. Prior to placement of the plate, Sera DBM plus paste with cancellous bone was placed into the defect caused by correction of the deformity. This was held in position with a freer elevator and positioning was confirmed with fluoroscopy. Once the fracture was reduced, the plate was pinned in position and subsequently attached with standard AO technique utilizing locking and nonlocking screws. We were able to maintain reduction of the fracture with the plate once it was attached in appropriate position. Fluoroscopy was used throughout the surgical procedure, and once the plate was in appropriate position and there was fixation proximal and distal to the fracture, the wound was copiously irrigated with half percent bupivacaine plain. This was also injected into the subcutaneous tissues. The fracture was noted to be stable once the plate was in position. Attention was directed to closure. The surgical incision was irrigated with normal saline containing Ancef. It was then closed with combination of 3-0 Monocryl in the subcutaneous tissues and skin gayle. This was followed by Dermabond, OpSite, fluffed fluffs, sterile soft roll, a volar splint, and an Griffin wrap. The tourniquet was released after 74 minutes. There were no complications. There were no specimens. The procedure was well tolerated. Related Problem List Diagnoses (1) Distal radius fracture, left: (2) Fracture of ulnar styloid:
--- NOTE | 2023-03-26 19:51 | ANES.PROC ---
Anesthesia Procedures Procedure/Date: 03/26/23 Nerve Block ^: Nerve Block 1: Main Anesthesia: general anesthesia Time Out Performed: Yes Consent: requested by attending/covering physician, from patient, risks and benefits reviewed and patient agrees to proceed Nerve block location: supraclavicular (left) Anesthesia monitors applied: pulse oximetry, EKG, BP cuff and oxygen Nerve block position: semi sitting Anesthetic Used: ropivicaine 0.5% Amount of anesthesia used (mL): 20 Ultrasound used to: recognize landmarks and visualize and ID brachial plexus Nerve Stimulator Used?: No Interscalene/Femoral BLK: 2 stimuplex 22 g needle used for position and inplane approach Injection: neg aspiration of heme Patient Tolerated Procedure: well Complications: none
--- NOTE | 2023-03-26 19:52 | ANE.PACU2 ---
Inpatient post-anesthesia follow up: Airway intact: Yes Vital signs: Temperature 97.2 F Pulse Rate 65 Respiratory Rate 16 Blood Pressure 170/94 Pulse Oximetry 94 Oxygen Delivery Me thod Room Air Oxygen Flow Rate 3 Fraction of Inspir ed Oxygen Hydration adequate: Yes Nausea and vomiting: No Pain level: 1 Mental status: Baseline
[2023-03-26] MEDS: HYDROcodone-acetaminophen 5-325 mg Tablet 2 TAB PO (19:55)
[2023-03-26] MEDS: ondansetron 2 mg/ML SDV 2 mL 4 MG IVP (19:55)
== END 2023-03-26 20:30 | disposition home or self-care (01) ==
PROVIDERS: PCP Nurse Practitioner; Visit Provider Specialist
PROC: (CPT 25607; principal; 2023-03-26 14:45)
DX: S52.502P Unspecified fracture of the lower end of left radius, subsequent encounter for closed fracture with malunion (principal); W01.0XXD Fall on same level from slipping, tripping and stumbling without subsequent striking against object, subsequent encounter; J44.9 Chronic obstructive pulmonary disease, unspecified; I10 Essential (primary) hypertension; K21.9 Gastro-esophageal reflux disease without esophagitis; E78.5 Hyperlipidemia, unspecified; F17.210 Nicotine dependence, cigarettes, uncomplicated
CPT/HCPCS: 25607; 73100; 76000; C1713; J0131; J2405; J2704; J2795; J3010; J3370; J3490; J7030

== ENCOUNTER → 2023-04-13 09:30 | Outpatient (BNVA) | payer MEDICARE, SELFPAY | PROVIDERS: PCP Nurse Practitioner; Visit Provider Nurse Practitioner | DX: S52.532A Colles' fracture of left radius, initial encounter for closed fracture; S52.612A Displaced fracture of left ulna styloid process, initial encounter for closed fracture; X58.XXXA Exposure to other specified factors, initial encounter; Z46.89 Encounter for fitting and adjustment of other specified devices; S52.502D Unspecified fracture of the lower end of left radius, subsequent encounter for closed fracture with routine healing; X58.XXXD Exposure to other specified factors, subsequent encounter | CPT/HCPCS: 73110; 99024; L3908 ==

== ENCOUNTER 2023-04-13 11:00 | Outpatient (CLI) | payer MEDICARE, SELFPAY | END 2023-04-13 11:01 | disposition home or self-care (01) | LOC: SPT 11:01 | PROVIDERS: PCP Nurse Practitioner; Visit Provider Nurse Practitioner | DX: Z46.89 Encounter for fitting and adjustment of other specified devices (principal); S52.502D Unspecified fracture of the lower end of left radius, subsequent encounter for closed fracture with routine healing; X58.XXXD Exposure to other specified factors, subsequent encounter | CPT/HCPCS: 99024; L3908 ==

== ENCOUNTER → 2023-05-04 09:04 | Outpatient (BNVA) | payer MEDICARE, SELFPAY | PROVIDERS: PCP Nurse Practitioner; Visit Provider Nurse Practitioner | DX: S52.532D Colles' fracture of left radius, subsequent encounter for closed fracture with routine healing; S52.612D Displaced fracture of left ulna styloid process, subsequent encounter for closed fracture with routine healing; X58.XXXD Exposure to other specified factors, subsequent encounter | CPT/HCPCS: 73110; 99024 ==

== ENCOUNTER → 2023-06-01 10:48 | Outpatient (BNVA) | payer MEDICARE, SELFPAY | PROVIDERS: PCP Nurse Practitioner; Visit Provider Nurse Practitioner | DX: I10 Essential (primary) hypertension (principal); E78.2 Mixed hyperlipidemia; E55.9 Vitamin D deficiency, unspecified | CPT/HCPCS: 80053; 80061; 81000; 82306; 82607; 84443 ==

== ENCOUNTER → 2023-06-04 14:29 | Outpatient (BNVA) | payer MEDICARE, SELFPAY | PROVIDERS: PCP Nurse Practitioner; Visit Provider Nurse Practitioner Family | DX: L82.0 Inflamed seborrheic keratosis (principal); L57.0 Actinic keratosis; L57.8 Other skin changes due to chronic exposure to nonionizing radiation; L81.4 Other melanin hyperpigmentation; Z85.828 Personal history of other malignant neoplasm of skin | CPT/HCPCS: 17000; 17110; 99213 ==

== ENCOUNTER → 2023-06-10 10:34 | Outpatient (BNVA) | payer MEDICARE, SELFPAY | PROVIDERS: PCP Nurse Practitioner; Visit Provider Nurse Practitioner | DX: S52.532D Colles' fracture of left radius, subsequent encounter for closed fracture with routine healing (principal); S52.612D Displaced fracture of left ulna styloid process, subsequent encounter for closed fracture with routine healing; X58.XXXD Exposure to other specified factors, subsequent encounter | CPT/HCPCS: 73110; 99213 ==

== ENCOUNTER 2023-06-23 12:06 | Outpatient (CLI) | payer MEDICARE, SELFPAY ==
--- NOTE | 2023-06-23 12:00 | MM_ITS ---
WS: [id number] Bilateral screening 3D tomosynthesis digital mammogram, 06/23/2023 Clinical Data: Z12.31 - Encounter for screening mammogram for malignant ... Comparison: 01/21/2022, 09/11/2015, 08/30/2015. Findings: The breast parenchymal pattern shows heterogeneous density. No spiculated masses or clustered calcifi cations are seen. There are no secondary signs of carcinoma. There is asymmetry in the upper outer qu adrant of the left breast unchanged. Impression: 1. Negative bilateral mammogram unchanged. 2. Recommend annual screening mammograms. MM/[place] [id number] BIRADS: 1-Negative FOLLOW UP: 1 Year Follow-up The CAD coloring checker was used.
== END 2023-06-23 12:07 | disposition home or self-care (01) ==
LOC: MOBLMAM 12:18
PROVIDERS: PCP Nurse Practitioner; Visit Provider Nurse Practitioner
DX: Z12.31 Encounter for screening mammogram for malignant neoplasm of breast (principal)
CPT/HCPCS: 77063; 77067

== ENCOUNTER → 2023-07-10 14:31 | Outpatient (BNVA) | payer MEDICARE, SELFPAY | PROVIDERS: PCP Nurse Practitioner; Visit Provider Nurse Practitioner Family | DX: J02.9 Acute pharyngitis, unspecified (principal) | CPT/HCPCS: 87400 ==

== ENCOUNTER → 2023-07-22 11:22 | Outpatient (BNVA) | payer MEDICARE, SELFPAY | PROVIDERS: PCP Nurse Practitioner; Visit Provider Nurse Practitioner Family | DX: D48.5 Neoplasm of uncertain behavior of skin (principal); L57.8 Other skin changes due to chronic exposure to nonionizing radiation; L81.4 Other melanin hyperpigmentation; Z85.828 Personal history of other malignant neoplasm of skin | CPT/HCPCS: 11102; 99213 ==

== ENCOUNTER → 2023-08-18 08:03 | Outpatient (BNVA) | payer MEDICARE, SELFPAY | PROVIDERS: PCP Nurse Practitioner; Visit Provider Dermatology | DX: C44.722 Squamous cell carcinoma of skin of right lower limb, including hip (principal); L57.0 Actinic keratosis | CPT/HCPCS: 17313; 99213 ==

== ENCOUNTER → 2023-09-15 14:47 | Outpatient (BNVA) | payer MEDICARE, SELFPAY | PROVIDERS: PCP Nurse Practitioner; Visit Provider Dermatology | DX: L57.0 Actinic keratosis (principal); Z48.817 Encounter for surgical aftercare following surgery on the skin and subcutaneous tissue | CPT/HCPCS: 17000; 99214 ==

== ENCOUNTER → 2023-10-06 13:09 | Outpatient (BNVA) | payer MEDICARE, SELFPAY | PROVIDERS: PCP Nurse Practitioner; Visit Provider Dermatology | DX: D48.5 Neoplasm of uncertain behavior of skin (principal); L82.1 Other seborrheic keratosis; D69.2 Other nonthrombocytopenic purpura; Z48.817 Encounter for surgical aftercare following surgery on the skin and subcutaneous tissue | CPT/HCPCS: 11102; 99214 ==

== ENCOUNTER → 2023-11-18 11:43 | Outpatient (BNVA) | payer MEDICARE, SELFPAY | PROVIDERS: PCP Nurse Practitioner; Visit Provider Nurse Practitioner | DX: E55.9 Vitamin D deficiency, unspecified (principal); E78.2 Mixed hyperlipidemia; F41.9 Anxiety disorder, unspecified; I10 Essential (primary) hypertension; M54.50 Low back pain, unspecified | CPT/HCPCS: 80053; 80061; 82306; 82607; 83735; 84443; 85025 ==

== ENCOUNTER 2023-11-26 11:00 | Outpatient (CLI) | payer MEDICARE, SELFPAY ==
--- NOTE | 2023-11-26 11:03 | XR_ITS ---
WS: [id number] Left hip, 2 views, AP pelvis, 11/26/2023 Clinical Data: M54.50 - Low back pain, unspecified Comparison: None. Findings: No fractures or dislocations are seen. The left hip shows no narrowing, erosion, sclerosis or cyst fo rmation. The left femoral head shows no fragmentation. There is a small acetabular lip.. The soft tis sues are not remarkable. The adjacent pelvis is normal. The right hip shows an acetabular lip. XR/XR hip LT 2-3V wo/w pel* [id number] Impression: Small acetabular lips of both hips. Tonnis classification: grade 1: sclerosis of femoral head and acetabulum or sli ght joint space narrowing or slight lipping at joint margins
--- NOTE | 2023-11-26 11:03 | XR_ITS ---
WS: [id number] Lumbar spine, 3 views, 11/26/2023 Clinical Data: M54.50 - Low back pain, unspecified Comparison: None. Findings: No compression fractures or subluxation is seen. There is disc narrowing at L5-S1. There is osteoporo sis with anterior spurring of all the lumbar vertebral bodies. The transverse processes and SI joint s are normal. XR/XR lumbar spine 2-3V* [id number] Impression: 1.. Degenerative disc narrowing at L5-S1. 2. Osteoporosis with spurring of all the lumbar vertebral bodies.
== END 2023-11-26 11:01 | disposition home or self-care (01) ==
LOC: RAD 11:01
PROVIDERS: PCP Nurse Practitioner; Visit Provider Nurse Practitioner
DX: M51.36 Other intervertebral disc degeneration, lumbar region (principal); M81.0 Age-related osteoporosis without current pathological fracture; M25.78 Osteophyte, vertebrae; M79.605 Pain in left leg
CPT/HCPCS: 72100; 73502

== ENCOUNTER 2023-12-23 06:00 | Outpatient (RCR) | payer MEDICARE, SELFPAY | END 2024-01-04 23:59 | disposition home or self-care (01) | LOC: TPT 06:00 | PROVIDERS: PCP Nurse Practitioner; Visit Provider Nurse Practitioner | DX: M54.50 Low back pain, unspecified (principal); M79.605 Pain in left leg | CPT/HCPCS: 97110; 97162 ==

== ENCOUNTER 2024-01-05 06:30 | Outpatient (RCR) | payer MEDICARE, SELFPAY | END 2024-02-04 23:59 | disposition home or self-care (01) | LOC: TPT 06:30 | PROVIDERS: PCP Nurse Practitioner; Visit Provider Nurse Practitioner | DX: M54.50 Low back pain, unspecified (principal); M79.605 Pain in left leg | CPT/HCPCS: 17000; 97110; 99213 ==

== ENCOUNTER 2024-02-05 06:00 | Outpatient (RCR) | payer MEDICARE, SELFPAY | END 2024-03-05 23:59 | disposition home or self-care (01) | LOC: TPT 06:00 | PROVIDERS: PCP Nurse Practitioner; Visit Provider Nurse Practitioner | DX: M54.50 Low back pain, unspecified (principal); M79.605 Pain in left leg | CPT/HCPCS: 97110 ==

== ENCOUNTER → 2024-02-15 11:37 | Outpatient (BNVA) | payer MEDICARE, SELFPAY | PROVIDERS: PCP Nurse Practitioner; Visit Provider Nurse Practitioner | DX: I10 Essential (primary) hypertension (principal); E87.1 Hypo-osmolality and hyponatremia | CPT/HCPCS: 80048; 81000 ==

== ENCOUNTER 2024-03-06 06:00 | Outpatient (RCR) | payer MEDICARE, SELFPAY | END 2024-03-21 23:59 | disposition home or self-care (01) | LOC: TPT 06:00 | PROVIDERS: PCP Nurse Practitioner; Visit Provider Nurse Practitioner | DX: M54.50 Low back pain, unspecified (principal); M79.605 Pain in left leg | CPT/HCPCS: 97110 ==

== ENCOUNTER → 2024-05-04 12:01 | Outpatient (BNVA) | payer MEDICARE, SELFPAY | PROVIDERS: PCP Nurse Practitioner; Visit Provider Nurse Practitioner | DX: I10 Essential (primary) hypertension (principal); E78.2 Mixed hyperlipidemia | CPT/HCPCS: 80053; 80061 ==

== ENCOUNTER 2024-07-19 11:36 | Inpatient (IN) | payer MEDICARE, SELFPAY ==
[2024-07-19] VITALS (12 sets, daily range): BP systolic 105–152; BP diastolic 64–91; PULSE 75–90; RESP 15–17; TEMP 36.4–37.2; O2SAT 90–96; BMI 25.0; BMI 25.2
--- NOTE | 2024-07-19 11:46 | XRR_ITS ---
PROCEDURE INFORMATION: Exam: XR Right Hip Exam date and time: 07/19/2024 11:50 AM Age: 74 years old Clinical indication: Injury or trauma; Fall; Blunt trauma (contusions or hematomas); Right; Hip TECHNIQUE: Imaging protocol: Radiologic exam of the right hip. Views: 1 view hip with pelvis when performed. COMPARISON: CR XR lumbar spine 2-3V* [id number] 11/26/2023 11:11 AM FINDINGS: Bones/joints: Minimally impacted and minimally angulated subcapital fracture of the proximal right femur. No other osseous or joint abnormality. Soft tissues: Unremarkable. XR/XR hip RT 2-3V wo/w pel* [id number] IMPRESSION: Subcapital fracture.
--- NOTE | 2024-07-19 12:04 | ED_ITS ---
HPI - Fall 2 General: Chief Complaint: Fall Stated Complaint: RT hip pain Time Seen by Provider: 07/19/24 11:42 History of Present Illness: 74-year-old female had a mechanical fall as she was trying to sit in a chair last night the chair slipped flipped over patient's family had to help her up. She is about unable to walk since that episode no other injury. This episode happened last night around 7:00. She previously has had falls where she injured her left wrist remotely had open reduction internal fixation for that. She denies striking her head there is no loss of consciousness she was still unable to walk this morning and ultimately ambulance was called and she was brought in. Her last meal was last evening she states she tried to eat this morning but could not due to discomfort and nausea. Associated symptoms-after fall: Denies abdominal pain, chest pain or neck pain Related Data Home Medications ?Medication ?Instructions ?Recorded ?Confirmed calcium 500 mg (as 1 tab PO BID 07/19/24 carbonate)-vitamin D3 15 mcg (600 unit) tablet (Os-Davie 500 + D3) nitroglycerin 0.4 mg sublingual 0.4 mg sublingual Q5M PRN Chest 07/19/24 07/19/24 tablet Pain venlafaxine 37.5 mg 37.5 mg PO BID 07/19/2407/05 capsule,extended release 24 hr (Effexor XR) Previous Rx's ?Medication ?Instructions ?Recorded clonidine HCl 0.1 mg tablet 0.1 mg PO BID PRN hyperten sive 10/30/22 emergency #60 tabs amlodipine 10 mg tablet 10 mg PO DAILY #30 tabs 04/07 12/29 doxepin 10 mg capsule 10 mg PO TID PRN anxiety #90 caps 05/04/24 famotidine 20 mg tablet (Pepcid) 20 mg PO BID #60 tabs 05/04/24 imipramine HCl 50 mg tablet 50 mg PO BID #60 tabs 04/07 12/29 metoprolol succinate 100 mg 100 mg PO DAILY #30 tabs 0 05/04/24 tablet,extended release 24 hr sodium chloride 1,000 mg soluble 1,000 mg PO DAILY #30 tabs 05/04/24 tablet Allergies Allergy/AdvReac Type Severity Reaction Status Date / Time ciprofloxacin Allergy rapid Verified 05/04/24 11:25 heart beat Penicillins Allergy swelling Verified 05/04/24 11:25 streptomycin Allergy rash Verified 05/04/24 11:25 Sulfa (Sulfonamide Allergy rash Verified 05/04/24 11:25 Antibiotics) ibandronate sodium (From AdvReac Severe ADR-Muscle Verified 05/04/24 11:25 Boniva) Pain Review of Systems 2 Const: Denies: fever(s) or chills Card: Denies: chest pain Resp: Denies: dyspnea GI: Denies: abdominal pain : Denies: dysuria, urinary frequency or urinary urgency Musc: Reports: joint pain; Denies: neck pain or back pain Skin/Breast: Denies: rash PFSH ED 2 PFSH: Medical History Fracture of ulnar styloid Distal radius fracture, left Colon cancer screening History of nonmelanoma skin cancer Risk for coronary artery disease between 10% and 20% in next 10 years Anxiety Hypertension Seborrhea capitis in adult Surgical History Hx of breast biopsy left Hx of tonsillectomy Hx of colonoscopy 1999 Family History Mother Cancer Blood cancer age 52 Denies family history of Diabetes Hypertension Social History Smoking and tobacco/nicotine status: current every day tobacco/nicotine user cigarettes Packs smoked per day: 1 Second hand smoke exposure: Yes Alcohol intake: current Alcohol intake frequency: 0-2 Drinks per Day Alcohol type: wine Substance/Drug Use: unknown Adopted: No Caregiver/support person: No Lives independently: Yes Household members: none Housing: House Marital status: / service: No Current occupational exposures/hazards: No Do you think of yourself as: Straight/Heterosexual Current gender identity: Female Physical Exam 2 Const: GENERAL APPEARANCE: cooperative ORIENTATION/CONSCIOUSNESS: Yes awake, Yes oriented to person, Yes oriented to place and Yes oriented to time HENMT: COMMON NORMALS: normocephalic, atraumatic and hearing grossly normal bilaterally HEAD & SCALP: normocephalic and atraumatic Resp: COMMON NORMALS: normal respiratory effort, No retractions, No use of accessory muscles and clear to auscultation bilaterally AUSCULTATION: clear to auscultation bilaterally Cardio: COMMON NORMALS: regular rate, regular rhythm and No murmurs present (Cardio) RATE: regular rate RHYTHM: regular rhythm GI: COMMON NORMALS: Soft to palpation and No hepatosplenomegaly present A USCULTATION: Yes normoactive bowel sounds PALPATION: Yes Soft to palpation, No Tenderness to palpation present (GI), No Guarding due to palpation present (GI) and Yes No hepatosplenomegaly present Extremity: COMMON NORMALS: normal to inspection, capillary refill normal, no clubbing, cyanosis or edema, no calf tenderness and no pedal edema Neuro: SENSORIUM/ORIENTATION: Yes oriented to person, Yes oriented to place and Yes oriented to time Skin: COMMON NORMALS: no rashes or lesions noted GENERAL SKIN EXAM: no rashes or lesions noted Course 2 Vital Signs: Vital signs: Vital Signs Temperature 98.3 F 07/19/24 11:39 Pulse Rate 82 07/19/24 13:15 Respiratory Rate 16 07/19/24 13:09 Blood Pressure 145/90 07/19/24 13:15 Pulse Oximetry 96 07/19/24 13:15 Oxygen Delivery Me thod Room Air 07/19/24 11:39 MDM - Fall Medical Decision Making X-ray shows femoral neck fracture mild displacement. She did try to eat a little this morning states she got a biter to and but was not able to tolerate it last full meal was last evening. Will admit to hospitalist consult orthopedics for right femoral neck fracture Lab Data 07/19/24 12:20 07/19/24 12:20 Radiology Impressions Hip/Pelvis X-Ray 07/19/24 11:46 IMPRESSION: Subcapital fracture. Chest X-Ray 07/19/24 12:08 IMPRESSION: No acute abnormality. Laboratory Results WBC 9.13 10^3/uL (3.29-11.43) 07/19/24 12:20 RBC 4.22 10^6/uL (3.85-5.65) 07/19/24 12:20 Hgb 13.50 g/dL (11.27-16.99) 07/19/24 12:20 Hct 39.8 % (36-47) 07/19/24 12:20 MCV 94.3 fl (85-98) 07/19/24 12:20 MCH 32.0 pg (27-33) 07/19/24 12:20 MCHC 33.9 g/dL (30-55) 07/19/24 12:20 RDW 12.4 % (12.1-15.1) 07/19/24 12:20 Plt Count 251 10^3/cmm (157-399) 07/19/24 12:20 MPV 8.8 fL (7.4-10.4) 07/19/24 12:20 Neut % (Auto) 65.9 % 07/19/24 12:20 Lymph % (Auto) 21.9 % 07/19/24 12:20 [place] % (Auto) 10.8 % 07/19/24 12:20 Eos % (Auto) 0.8 % 07/19/24 12:20 Baso % (Auto) 0.4 % 07/19/24 12:20 Neut # (Auto) 6.01 10^3/uL (1.8-7.7) 07/19/24 12:20 Lymph # (Auto) 2.0 10^3/uL (0.8-4.8) 07/19/24 12:20 [place] # (Auto) 1.0 10^3/uL (0.2-0.9) H 07/19/24 12:20 Eos # (Auto) 0.1 10^3/uL (0.0-0.8) 07/19/24 12:20 Baso # (Auto) 0.0 10^3/uL (0.0-0.1) 07/19/24 12:20 Nucleated RBC % (auto) 0 % 07/19/24 12:20 Nucleated RBCs # 0.0 /100WBC 07/19/24 12:20 Sodium 136 mmol/L (136-145) 07/19/24 12:20 Potassium 3.8 mmol/L (3.5-5.1) 07/19/24 12:20 Chloride 99 mmol/L (98-107) 07/19/24 12:20 Carbon Dioxide 26 mmol/L (22-29) 07/19/24 12:20 Anion Gap 14.8 (5-19) 07/19/24 12:20 BUN 8 mg/dL (8-23) 07/19/24 12:20 Creatinine 0.5 mg/dL (0.5-0.9) 07/19/24 12:20 GFR Calculation Not Reportable 07/19/24 12:20 Glucose 102 mg/dL (65-115) 07/19/24 12:20 Calculated Osmolality 281 mOsm/kg (285-295) L 07/19/24 12:20 Calcium 9.4 mg/dL (8.5-10.5) 07/19/24 12:20 Total Bilirubin 0.7 mg/dL (0.15-1.2) 07/19/24 12:20 AST 16 U/L (0-32) 07/19/24 12:20 ALT 19 U/L (0-33) 07/19/24 12:20 Alkaline Phosphatase 87 U/L (35-105) 07/19/24 12:20 Total Protein 7.3 g/dL (6.6-8.7) 07/19/24 12:20 Albumin 4.6 g/dL (3.5-5.2) 07/19/24 12:20 Globulin 2.7 g/dL (1.3-4.6) 07/19/24 12:20 Amorphous Sediment Not Reportable 07/19/24 12:48 All radiology interpretation(s) finalized by discharge Discharge Plan Discharge Patient Disposition: Admitted As Inpatient Admit Provider: Kayy Vargas Clinical Impression: Fracture of femoral neck, right Condition: Stable Coding Level of Care Code ED Oil 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
--- NOTE | 2024-07-19 12:08 | XRR_ITS ---
PROCEDURE INFORMATION: Exam: XR Chest Exam date and time: 07/19/2024 12:08 PM Age: 74 years old Clinical indication: Cough and dyspnea; Additional info: Dyspnea/cough TECHNIQUE: Imaging protocol: Radiologic exam of the chest. Views: 1 view. COMPARISON: CR XR ribs RT mn 3V w CXR1V [id number] 11/12/2021 12:22 PM FINDINGS: Lungs: Unremarkable. No consolidation. Pleural spaces: Unremarkable. No pleural effusion. No pneumothorax. Heart/Mediastinum: Unremarkable. No cardiomegaly. Bones/joints: Unremarkable. XR/XR chest 1V portable [id number] IMPRESSION: No acute abnormality.
--- NOTE | 2024-07-19 12:27 | ECG_ITS ---
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 Measurements Intervals [place] Rate: 82 P: 74 OR: 184 QRS: -44 QRSD: 107 T: 60 QT: 384 QTc: 451 Interpretive Statements SINUS RHYTHM POSSIBLE LEFT ATRIAL ENLARGEMENT [-0.1mV P-WAVE IN V1/V2] LEFT AXIS DEVIATION [QRS AXIS < -30] INCOMPLETE RIGHT BUNDLE BRANCH BLOCK [90+ ms QRS DURATION, TERMINAL R IN V1/V2, 40+ ms S IN I/aVL/V4/V5/V6] Compared to ECG 09/21/2017 10:54:01 Incomplete right bundle-branch block now present Electronically Signed On 07-20-2024 21:34:21 CDT by Niall Pat M.D. [email or web address]
[2024-07-19 12:28] LABS: Basophils % 0.4 %; Eosinophils # 0.1 10^3/uL (0.0-0.8); Eosinophils % 0.8 %; Hematocrit 39.8 % (36-47); Lymphocytes % 21.9 %; Mean Corpuscular HGB Conc 33.9 g/dL (30-55); Mean Corpuscular Volume 94.3 fl (85-98); Mean Platelet Volume 8.8 fL (7.4-10.4); Monocytes % 10.8 %; Neutrophils # 6.01 10^3/uL (1.8-7.7); Neutrophils % 65.9 %; Nucleated Red Blood Cells % 0 %; Platelet Count 251 10^3/cmm (157-399); Red Blood Count 4.22 10^6/uL (3.85-5.65); Red Cell Distribution Width 12.4 % (12.1-15.1); White Blood Count 9.13 10^3/uL (3.29-11.43)
[2024-07-19 12:50] LABS: Alanine Aminotransferase 19 U/L (0-33); Albumin Level 4.6 g/dL (3.5-5.2); Alkaline Phosphatase 87 U/L (35-105); Anion Gap 14.8 (5-19); Aspartate Amino Transferase 16 U/L (0-32); Blood Urea Nitrogen 8 mg/dL (8-23); Calcium 9.4 mg/dL (8.5-10.5); Carbon Dioxide 26 mmol/L (22-29); Chloride 99 mmol/L (98-107); Creatinine Clr Calc Pharmacy 56.0146; Globulin 2.7 g/dL (1.3-4.6); Glucose 102 mg/dL (65-115); Osmolality Calculated 281 mOsm/kg (285-295); Potassium 3.8 mmol/L (3.5-5.1); Sodium 136 mmol/L (136-145); Total Bilirubin 0.7 mg/dL (0.15-1.2); Total Protein 7.3 g/dL (6.6-8.7)
[2024-07-19] MEDS: ondansetron 2 mg/ML SDV 2 mL 4 MG IVP (13:04)
[2024-07-19] MEDS: morphine 4 mg/mL SDV 1 mL IVP (13:09)
[2024-07-19 13:59] LABS: Bacteria Urine None Seen /hpf; Hyaline Casts Urine 0-4 /lpf; RBC Urine 0-2 /hpf (0-2); Squamous Epithelial Cell Urine 0-5 /hpf (0-5); WBC Urine 0-5 /hpf (0-5)
[2024-07-19 14:02] LABS: Add Urine Culture? No; Add Urine Microscopic? YES; Bilirubin Urine Neg (Negative); Blood Urine 2+ (Negative); Glucose Urine UA Norm (Normal); Ketones Urine Negative (Negative); Leukocyte Esterase Urine Negative (Negative); Nitrate Urine Negative (Negative); Protein Urine Neg (Negative); Specific Gravity, Urine 1.005 (1.005-1.030); Urine Appearance Clear (CLEAR); Urine Color Yellow (Yellow); Urobilinogen Urine Neg (Negative); pH Urine 8 (5-7)
--- NOTE | 2024-07-19 14:40 | PM.HP ---
Providers/Chief Complaint Admitting Physician: Kayy Vargas MD Primary Care Provider: Edil Christianson, DISTRIBUTOR SALES MANAGER-C Chief Complaint: RT hip pain History of Present Illness Edelmira Brady is a 74 year old female with a past medical history of hypertension, panic disorder, history of chronic smoking, half pack per day, presenting to the hospital today after having a mechanical fall last night. Patient states she was attempting to sit in a brandi rocker chair but the chair gave way and she fell to the floor. She remained on the floor overnight as she felt too sick to get get up. This morning her family was able to assist her and bring her to the emergency room. She has been noted to have a subcapital fracture of the right proximal femur and is planned for surgical intervention tomorrow with orthopedics. She denies any chest pain dyspnea palpitations or syncope. No known cardiac or pulmonary comorbidities. She declines a nicotine patch today. She has had a postnasal drip over the past 1 month. No cough. No fever. Review of Systems General: Reports: 10 or more systems reviewed and unremarkable except in HPI and below Const: Denies: fever(s), chills or body aches Eyes: Denies: change in vision, blurry vision or photophobia ENMT: Reports: hoarseness; Denies: throat pain, enlarged tonsils, odynophagia or nasal congestion Card: Denies: chest pain, palpitations, irregular heart rhythm, edema, swelling of feet/ankles, lightheadedness, pre-syncope, dyspnea on exertion or orthopnea Resp: Denies: dyspnea, productive cough, non-productive cough, wheezing, stridor, pain on inspiration, change in phlegm color, hemoptysis or chest congestion GI: Denies: abdominal pain, nausea, vomiting, hematemesis, coffee ground emesis, dysphagia, heartburn, diarrhea, constipation, GI cramping, change in stool character, hematochezia or melena : Denies: flank pain, difficulty voiding, dysuria, urinary frequency, urinary urgency, urinary hesitancy or hematuria Musc: Denies: neck pain, back pain, extremity pain, joint swelling, joint warmth or deformity Neuro: Denies: headache(s), numbness in extremities, weakness in extremities, sensory changes, difficulty walking, frequent falls, dizziness, vertigo, behavioral changes, Slurred speech present or seizure-like activity Psych: Denies: anxiety, depression, suicidal ideation or homicidal ideation Endo: Denies: polyuria, polydipsia, tired all the time, cold intolerance or hot flashes [place]/Lymph: Denies: easy bruising or easy bleeding Medications/Allergies Home Medications ?Medication ?Instructions ?Recorded ?Confirmed ?Last Taken ?Type clonidine HCl 0.1 mg tablet 0.1 mg PO BID PRN hypertensive 10/30/22 07/19/24 Unknown Rx emergency #60 tabs amlodipine 10 mg tablet 10 mg PO DAILY #30 tabs 05/04/24 07/19/24 07/19/24 Rx doxepin 10 mg capsule 10 mg PO TID PRN anxiety #90 caps 05/04/24 07/19/24 Unknown Rx famotidine 20 mg tablet (Pepcid) 20 mg PO BID #60 tabs 05/04/24 07/19/24 07/19/24 Rx imipramine HCl 50 mg tablet 50 mg PO BID #60 tabs 05/04/24 07/19/24 07/19/24 Rx metoprolol succinate 100 mg 100 mg PO DAILY #30 tabs 05/04/24 07/19/24 07/19/24 Rx tablet,extended release 24 hr sodium chloride 1,000 mg soluble 1,000 mg PO DAILY #30 tabs 05/04/24 07/19/24 07/19/24 Rx tablet calcium 500 mg (as 1 tab PO BID 07/19/24 07/19/24 07/19/24 History carbonate)-vitamin D3 15 mcg (600 unit) tablet (Os-Davie 500 + D3) nitroglycerin 0.4 mg sublingual 0.4 mg sublingual Q5M PRN Chest 07/19/24 07/19/24 Unknown History tablet Pain venlafaxine 37.5 mg 37.5 mg PO BID 07/19/24 07/19/24 07/19/24 History capsule,extended release 24 hr (Effexor XR) Allergies Allergy/AdvReac Type Severity Reaction Status Date / Time ciprofloxacin Allergy rapid Verified 05/04/24 11:25 heart beat Penicillins Allergy swelling Verified 05/04/24 11:25 streptomycin Allergy rash Verified 05/04/24 11:25 Sulfa (Sulfonamide Allergy rash Verified 05/04/24 11:25 Antibiotics) ibandronate sodium (From AdvReac Severe ADR-Muscle Verified 05/04/24 11:25 Boniva) Pain PFSH Acute PFSH: Medical History Fracture of ulnar styloid Distal radius fracture, left Colon cancer screening History of nonmelanoma skin cancer Risk for coronary artery disease between 10% and 20% in next 10 years Anxiety Hypertension Seborrhea capitis in adult Surgical History Hx of breast biopsy left Hx of tonsillectomy Hx of colonoscopy 1999 Family History Mother Cancer Blood cancer age 52 Denies family history of Diabetes Hypertension Social History Smoking and tobacco/nicotine status: current every day tobacco/nicotine user cigarettes Packs smoked per day: 1 Second hand smoke exposure: Yes Alcohol intake: current Alcohol intake frequency: 0-2 Drinks per Day Alcohol type: wine Substance/Drug Use: unknown Adopted: No Caregiver/support person: No Lives independently: Yes Household members: none Housing: House Marital status: / service: No Current occupational exposures/hazards: No Do you think of yourself as: Straight/Heterosexual Current gender identity: Female Vitals/I&O/Wt Last Vital Signs Temp 98.3 F 07/19/24 11:39 Pulse 90 07/19/24 13:26 Resp 16 07/19/24 13:09 BP 145/90 07/19/24 13:15 Pulse Ox 96 07/19/24 13:15 O2 Del Method Room Air 07/19/24 13:07 Weight last 48 hrs Weight 66.706 kg Weight 66.224 kg Physical Exam Narrative: General: No acute distress, AO x3 HEENT: PERRLA, pupils bilaterally equal and reactive, pallors not present Chest: Normal vesicular breath sounds, no added sounds, equal good air entry bilaterally CVS: S1-S2 regular, no murmurs, no tachycardia, no gallops, no rubs Abdomen: Soft, nontender, no organomegaly, bowel sounds present Neuro: No focal deficits, no facial deformity, AO x3, power 5/5 in all limbs Urinary Catheter Management: Byers: Cath Placed During This Visit: yes Urinary Catheter Date of Insertion: 07/19/24 Urinary Catheter Time of Insertion: 12:55 Data 07/19/24 12:20 07/19/24 12:20 Other Labs: Radiology Impressions Hip/Pelvis X-Ray 07/19/24 11:46 IMPRESSION: Subcapital fracture. Chest X-Ray 07/19/24 12:08 IMPRESSION: No acute abnormality. Laboratory Results WBC 9.13 10^3/uL (3.29-11.43) 07/19/24 12:20 RBC 4.22 10^6/uL (3.85-5.65) 07/19/24 12:20 Hgb 13.50 g/dL (11.27-16.99) 07/19/24 12:20 Hct 39.8 % (36-47) 07/19/24 12:20 MCV 94.3 fl (85-98) 07/19/24 12:20 MCH 32.0 pg (27-33) 07/19/24 12:20 MCHC 33.9 g/dL (30-55) 07/19/24 12:20 RDW 12.4 % (12.1-15.1) 07/19/24 12:20 Plt Count 251 10^3/cmm (157-399) 07/19/24 12:20 MPV 8.8 fL (7.4-10.4) 07/19/24 12:20 Neut % (Auto) 65.9 % 07/19/24 12:20 Lymph % (Auto) 21.9 % 07/19/24 12:20 [place] % (Auto) 10.8 % 07/19/24 12:20 Eos % (Auto) 0.8 % 07/19/24 12:20 Baso % (Auto) 0.4 % 07/19/24 12:20 Neut # (Auto) 6.01 10^3/uL (1.8-7.7) 07/19/24 12:20 Lymph # (Auto) 2.0 10^3/uL (0.8-4.8) 07/19/24 12:20 [place] # (Auto) 1.0 10^3/uL (0.2-0.9) H 07/19/24 12:20 Eos # (Auto) 0.1 10^3/uL (0.0-0.8) 07/19/24 12:20 Baso # (Auto) 0.0 10^3/uL (0.0-0.1) 07/19/24 12:20 Nucleated RBC % (auto) 0 % 07/19/24 12:20 Nucleated RBCs # 0.0 /100WBC 07/19/24 12:20 Sodium 136 mmol/L (136-145) 07/19/24 12:20 Potassium 3.8 mmol/L (3.5-5.1) 07/19/24 12:20 Chloride 99 mmol/L (98-107) 07/19/24 12:20 Carbon Dioxide 26 mmol/L (22-29) 07/19/24 12:20 Anion Gap 14.8 (5-19) 07/19/24 12:20 BUN 8 mg/dL (8-23) 07/19/24 12:20 Creatinine 0.5 mg/dL (0.5-0.9) 07/19/24 12:20 GFR Calculation Not Reportable 07/19/24 12:20 Glucose 102 mg/dL (65-115) 07/19/24 12:20 Calculated Osmolality 281 mOsm/kg (285-295) L 07/19/24 12:20 Calcium 9.4 mg/dL (8.5-10.5) 07/19/24 12:20 Total Bilirubin 0.7 mg/dL (0.15-1.2) 07/19/24 12:20 AST 16 U/L (0-32) 07/19/24 12:20 ALT 19 U/L (0-33) 07/19/24 12:20 Alkaline Phosphatase 87 U/L (35-105) 07/19/24 12:20 Total Protein 7.3 g/dL (6.6-8.7) 07/19/24 12:20 Albumin 4.6 g/dL (3.5-5.2) 07/19/24 12:20 Globulin 2.7 g/dL (1.3-4.6) 07/19/24 12:20 Urine Color Yellow (Yellow) 07/19/24 12:48 Urine Appearance Clear (CLEAR) 07/19/24 12:48 Urine pH 8 (5-7) A 07/19/24 12:48 Ur Specific [place] 1.005 (1.005-1.030) 07/19/24 12:48 Urine Protein Neg (Negative) 07/19/24 12:48 Urine Glucose (UA) Norm (Normal) 07/19/24 12:48 Urine Ketones Negative (Negative) 07/19/24 12:48 Urine Blood 2+ (Negative) H 07/19/24 12:48 Urine Nitrate Negative (Negative) 07/19/24 12:48 Urine Bilirubin Neg (Negative) 07/19/24 12:48 Urine Urobilinogen Neg mg/dL (Negative) 07/19/24 12:48 Ur Leukocyte Esterase Negative (Negative) 07/19/24 12:48 Urine RBC 0-2 /hpf (0-2) 07/19/24 12:48 Urine WBC 0-5 /hpf (0-5) 07/19/24 12:48 Ur Squamous Epith Cells 0-5 /hpf (0-5) 07/19/24 12:48 Amorphous Sediment Not Reportable 07/19/24 12:48 Urine Bacteria None seen /hpf (NONE) 07/19/24 12:48 Hyaline Casts 0-4 /lpf H 07/19/24 12:48 A&P Assessment and plan (1) Subcapital fracture of femur: Patient presenting with a mechanical fall and found to have a right subcapital fracture. Plan for surgical intervention tomorrow. Regular diet now. N.p.o. postmidnight. Pain management with morphine and hydrocodone/APAP as needed. Orthopedics has been consulted from the emergency room. (2) Panic disorder: History of panic disorder, patient states this has been well-controlled recently Continue home doses of imipramine 50 mg twice daily, patient may use home medication as we do not have this on formulary Continue venlafaxine 37.5 mg p.o. twice daily. Continue as needed doxepin and clonidine if needed. (3) Hypertension: Hypertension currently well-controlled. Continue amlodipine 10 mg p.o. daily while in the hospital. Continue metoprolol 100 mg p.o. daily. Qualifiers: Hypertension type: essential hypertension Qualified Code(s): I10 - Essential (primary) hypertension Plan DVT prophylaxis: Lovenox 40 mg subcutaneously daily Full code. PDMP PDMP Reviewed: Not Reviewed Attestations Medical Necessity Statement*: Greater than 2 midnight admission is anticipated Coding Level of Care Code Acute Code for Chg Fwd Diagnoses Subcapital fracture of femur S72.019A Panic disorder F41.0 Essential hypertension I10 Hypertension type: essential hypertension
[2024-07-19] MEDS: enoxaparin 40 mg/0.4 mL Syringe SUBCUT (15:01)
--- NOTE | 2024-07-19 16:25 | PM.CONSULT ---
Providers/Reason For Consult Consulting Physician/Specialty*: Hospitalist Reason for Consult*: Right hip fracture Attending Physician: Kayy Vargas MD Primary Care Provider: REBEKAH Paige History of Present Illness History of Present Illness Edelmira Brady is a 74 year old female had a mechanical fall as she was trying to sit in a chair last night the chair slipped flipped over patient's family had to help her up. She is about unable to walk since that episode no other injury. This episode happened last night around 7:00. Patient states she is also been having a lot of falls lately. Review of Systems Const: Denies: fever(s) or chills Card: Denies: chest pain Resp: Denies: dyspnea GI: Denies: abdominal pain : Denies: dysuria, urinary frequency or urinary urgency Musc: Reports: joint pain; Denies: neck pain or back pain Skin/Breast: Denies: rash Medications/Allergies Home Medications ?Medication ?Instructions ?Recorded ?Confirmed ?Last Taken ?Type clonidine HCl 0.1 mg tablet 0.1 mg PO BID PRN hypertensive 10/30/22 07/19/24 Unknown Rx emergency #60 tabs amlodipine 10 mg tablet 10 mg PO DAILY #30 tabs 05/04/24 07/19/24 07/19/24 Rx doxepin 10 mg capsule 10 mg PO TID PRN anxiety #90 caps 05/04/24 07/19/24 Unknown Rx famotidine 20 mg tablet (Pepcid) 20 mg PO BID #60 tabs 05/04/24 07/19/24 07/19/24 Rx imipramine HCl 50 mg tablet 50 mg PO BID #60 tabs 05/04/24 07/19/24 07/19/24 Rx metoprolol succinate 100 mg 100 mg PO DAILY #30 tabs 05/04/24 07/19/24 07/19/24 Rx tablet,extended release 24 hr sodium chloride 1,000 mg soluble 1,000 mg PO DAILY #30 tabs 05/04/24 07/19/24 07/19/24 Rx tablet calcium 500 mg (as 1 tab PO BID 07/19/24 07/19/24 07/19/24 History carbonate)-vitamin D3 15 mcg (600 unit) tablet (Os-Davie 500 + D3) nitroglycerin 0.4 mg sublingual 0.4 mg sublingual Q5M PRN Chest 07/19/24 07/19/24 Unknown History tablet Pain venlafaxine 37.5 mg 37.5 mg PO BID 07/19/24 07/19/24 07/19/24 History capsule,extended release 24 hr (Effexor XR) Allergies Allergy/AdvReac Type Severity Reaction Status Date / Time ciprofloxacin Allergy rapid Verified 05/04/24 11:25 heart beat Penicillins Allergy swelling Verified 05/04/24 11:25 streptomycin Allergy rash Verified 05/04/24 11:25 Sulfa (Sulfonamide Allergy rash Verified 05/04/24 11:25 Antibiotics) ibandronate sodium (From AdvReac Severe ADR-Muscle Verified 05/04/24 11:25 Boniva) Pain Current Medications Generic Name Dose Route Start Last Admin Trade Name Freq PRN Reason Stop Dose Admin Enoxaparin Sodium 40 mg 07/19/24 14:45 07/19/24 15:01 Enoxaparin 40 Mg/0.4 Ml Syringe SUBCUT 40 mg Q24H ROBY Administration PFSH Acute PFSH: Medical History Fracture of ulnar styloid Distal radius fracture, left Colon cancer screening History of nonmelanoma skin cancer Risk for coronary artery disease between 10% and 20% in next 10 years Anxiety Hypertension Seborrhea capitis in adult Surgical History Hx of breast biopsy left Hx of tonsillectomy Hx of colonoscopy 1999 Family History Mother Cancer Blood cancer age 52 Denies family history of Diabetes Hypertension Social History Smoking and tobacco/nicotine status: current every day tobacco/nicotine user cigarettes Packs smoked per day: 1 Second hand smoke exposure: Yes Alcohol intake: current Alcohol intake frequency: 0-2 Drinks per Day Alcohol type: wine Substance/Drug Use: unknown Adopted: No Caregiver/support person: No Lives independently: Yes Household members: none Housing: House Marital status: / service: No Current occupational exposures/hazards: No Do you think of yourself as: Straight/Heterosexual Current gender identity: Female Vitals/I&O/Wt Last Vital Signs Temp 98.3 F 07/19/24 15:23 Pulse 75 07/19/24 15:23 Resp 16 07/19/24 15:23 BP 112/67 07/19/24 15:23 Pulse Ox 92 07/19/24 15:23 O2 Del Method Room Air 07/19/24 15:23 Weight last 48 hrs Weight 147 lb 1 oz Weight 146 lb Physical Exam Narrative: Alert and oriented x 3 Head is normocephalic atraumatic Respirations are intact No evidence of any rashes or infection 5/5 strength in bilateral upper and lower extremities Sensation intact in all extremities Deep tendon reflexes 2 out of 4 bilateral upper and lower extremities Patient's right leg is shortened and externally rotated Urinary Catheter Management: Byers: Cath Placed During This Visit: yes Urinary Catheter Date of Insertion: 07/19/24 Urinary Catheter Time of Insertion: 12:55 Data 07/19/24 12:20 07/19/24 12:20 A&P Assessment and plan (1) Fracture of femoral neck, right: Plan is to do a right hip hemiarthroplasty tomorrow. N.p.o. after midnight Qualifiers: Encounter type: initial encounter Fracture type: closed Qualified Code(s): S72.001A - Fracture of unspecified part of neck of right femur, initial encounter for closed fracture PDMP PDMP Reviewed: Not Reviewed Coding Level of Care Code Acute Code for Chg Fwd Diagnoses Closed fracture of neck of right femur, initial encounter S72.001A Encounter type: initial encounter Fracture type: closed
[2024-07-19] MEDS: famotidine 20 mg Tablet PO (17:29)
[2024-07-19] MEDS: venlafaxine ER (24HR) 37.5 mg Capsule PO (19:53)
[2024-07-19] MEDS: morphine 4 mg/mL SDV 1 mL 2 MG IVP (20:23)
[2024-07-20] VITALS (31 sets, daily range): BP systolic 119–157; BP diastolic 67–88; PULSE 74–95; RESP 14–21; TEMP 36.2–37.3; O2SAT 90–99
[2024-07-20] MEDS: morphine 4 mg/mL SDV 1 mL 2 MG IVP ×3 (05:50→17:00)
[2024-07-20 05:52] LABS: Basophils % 0.4 %; Eosinophils # 0.2 10^3/uL (0.0-0.8); Eosinophils % 2.3 %; Hematocrit 35.6 % (36-47); Lymphocytes # 2.4 10^3/uL (0.8-4.8); Lymphocytes % 28.3 %; Mean Corpuscular HGB Conc 33.1 g/dL (30-55); Mean Corpuscular Hemoglobin 31.8 pg (27-33); Mean Platelet Volume 9.3 fL (7.4-10.4); Monocytes # 0.9 10^3/uL (0.2-0.9); Monocytes % 10.7 %; Neutrophils # 4.88 10^3/uL (1.8-7.7); Neutrophils % 57.9 %; Nucleated Red Blood Cells % 0 %; Platelet Count 221 10^3/cmm (157-399); Red Blood Count 3.71 10^6/uL (3.85-5.65); Red Cell Distribution Width 12.6 % (12.1-15.1); White Blood Count 8.41 10^3/uL (3.29-11.43)
[2024-07-20 06:09] LABS: Alanine Aminotransferase 12 U/L (0-33); Albumin Level 3.9 g/dL (3.5-5.2); Alkaline Phosphatase 83 U/L (35-105); Anion Gap 13.8 (5-19); Aspartate Amino Transferase 14 U/L (0-32); Blood Urea Nitrogen 8 mg/dL (8-23); Calcium 8.7 mg/dL (8.5-10.5); Carbon Dioxide 27 mmol/L (22-29); Chloride 97 mmol/L (98-107); Creatinine Clr Calc Pharmacy 57.0086; Globulin 2.3 g/dL (1.3-4.6); Glucose 118 mg/dL (65-115); Magnesium 2.1 mg/dL (1.7-2.3); Osmolality Calculated 277 mOsm/kg (285-295); Potassium 3.8 mmol/L (3.5-5.1); Sodium 134 mmol/L (136-145); Total Bilirubin 0.4 mg/dL (0.15-1.2); Total Protein 6.2 g/dL (6.6-8.7)
--- NOTE | 2024-07-20 08:35 | PC.NURSE ---
Pt to the OR at this time
--- NOTE | 2024-07-20 09:08 | W.PM.OPSUD ---
Surgery/Procedure H&P Update DATE OF PROCEDURE: July 20, 2024 DATE H&P PERFORMED: 07/19/24 H&P UPDATE INFORMATION: I have reviewed H&P completed within last 30 days, I have examined patient prior to procedure and No changes to prior documentation PLANNED PROCEDURE: Operation Date: 07/20/24 09:35 Proposed Procedures p Hemiarthroplasty Hip(Right) - Louie Wheeler DO
[2024-07-20] MEDS: sodium chloride 0.9% 1,000 ML 30 ML IV (09:10)
--- NOTE | 2024-07-20 09:10 | PC.CHAP ---
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 [] Patient/Family/Request visit [] Outpatient visit [] Follow-up visit [] Physician referral [] Code/Alert [] Routine visit [] Staff referral [] Actively dying [] Patient sleeping [] Family support [] [x] Out of room [] Palliative care [] [] Receiving care in room [] Pre-surgical visit [] Trauma [] Long length of stay [] ICU visit [] Other: Relational/Emotional Strength [] Patient feels connected with others/family/visitors/staff [] Distress [] Loneliness/isolation [] Abandonment Spirituality of Patient [] Person of Opal [] Attends Jehovah'S Witness of their Opal [] Believes in Prayer [] Reads Bible or Jew materials [] There are Spiritual issues to be addressed 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 [] Prayer [] Active listening [] Non-anxious presence [] Spiritual/emotional support [] Crisis/trauma care [] Spiritual counseling [] Bereavement support [] Provided bereavement packet [] Provided Bible/devotional materials [] Provided toy/stuffed animal, coloring book to patient or family member [] Provided Communion [] Anointing/[place] [] Salvation [] Completed spiritual assessment [] Other: Impact on Illness or Injury [] Angry [] Fearful [] Anxious [] Often cries [] Exhaustion [] Unable to work [] Unable to attend synagogue [] Unable to walk/stand [] Unable to read [] Unable to drive [] Unable to eat/drink [] Unable to sleep [] Unable to be with family [] Patient intubated [] Other: Summary Time spent with patient
[2024-07-20] MEDS: midazolam 1 mg/mL INJ 2 mL 2 MG IVP (09:15)
[2024-07-20] MEDS: clindamycin 600 MG/50 ML PREMIX 100 MG IV ×2 (10:19→17:00)
--- NOTE | 2024-07-20 10:27 | ANES.PREANE2 ---
Pre-Anesthetic Assessment Height/Weight: Height 1.63 m Weight 68.855 kg Temp Pulse Resp BP Pulse Ox O2 Del Method O2 Flow Rate 98.6 F 81 18 131/80 97 Nasal Cannula 2 07/20/24 08:45 07/20/24 08:45 07/20/24 08:45 07/20/24 08:45 07/20/24 08:45 07/20/24 08:45 07/20/24 08:45 Operation Date: 07/20/24 09:35 Proposed Procedures p Hemiarthroplasty Hip(Right) - Louie Wheeler, DO Familial anesthetic complications: none Was Beta Danyel taken within 24 hours: N/A Was Clonidine taken within 24 hours: Yes Last intake: Intake Last Liquid Date 07/19/24 Last Solid Date 07/19/24 Social Tobacco and No alcohol Exam alert, oriented x 3 and regular rate & rhythm Airway Submandibular: within normal limits Cervical ROM: within normal limits Mallampati: Class II Dentition: chipped CV/HEM Hypertension GI Gastroesophageal Reflux Disease Musc/skel Lower Back Pain Neuropsych Anxiety Anesthetic Plan ASA status: 3 Anesthesia: Choice (Discussed GA v SAB) Medications/Allergies Home Medications ?Medication ?Instructions ?Recorded ?Confirmed ?Last Taken ?Type clonidine HCl 0.1 mg tablet 0.1 mg PO BID PRN hypertensive 10/30/22 07/19/24 Unknown Rx emergency #60 tabs amlodipine 10 mg tablet 10 mg PO DAILY #30 tabs 05/04/24 07/19/24 07/19/24 Rx doxepin 10 mg capsule 10 mg PO TID PRN anxiety #90 caps 05/04/24 07/19/24 Unknown Rx famotidine 20 mg tablet (Pepcid) 20 mg PO BID #60 tabs 05/04/24 07/19/24 07/19/24 Rx imipramine HCl 50 mg tablet 50 mg PO BID #60 tabs 05/04/24 07/19/24 07/19/24 Rx metoprolol succinate 100 mg 100 mg PO DAILY #30 tabs 05/04/24 07/19/24 07/19/24 Rx tablet,extended release 24 hr sodium chloride 1,000 mg soluble 1,000 mg PO DAILY #30 tabs 05/04/24 07/19/24 07/19/24 Rx tablet calcium 500 mg (as 1 tab PO BID 0407/19/24 07/19/24 History carbonate)-vitamin D3 15 mcg (600 unit) tablet (Os-Davie 500 + D3) nitroglycerin 0.4 mg sublingual 0.4 mg sublingual Q5M PRN Chest 07/19/24 07/19/24 Unknown History tablet Pain venlafaxine 37.5 mg 37.5 mg PO BID 07/19/24 07/19/24 07/19/24 History capsule,extended release 24 hr (Effexor XR) Allergies Allergy/AdvReac Type Severity Reaction Status Date / Time ciprofloxacin Allergy rapid Verified 05/04/24 11:25 heart beat Penicillins Allergy swelling Verified 05/04/24 11:25 streptomycin Allergy rash Verified 05/04/24 11:25 Sulfa (Sulfonamide Allergy rash Verified 05/04/24 11:25 Antibiotics) ibandronate sodium (From AdvReac Severe ADR-Muscle Verified 05/04/24 11:25 Boniva) Pain Current Medications Generic Name Dose Route Start Last Admin Trade Name Freq PRN Reason Stop Dose Admin Amlodipine Besylate 10 mg 07/20/24 09:00 07/20/24 08:35 Amlodipine 10 Mg Tablet PO Not Given DAILY ROBY Enoxaparin Sodium 40 mg 07/19/24 14:45 07/19/24 15:01 Enoxaparin 40 Mg/0.4 Ml Syringe SUBCUT 40 mg Q24H ROBY Administration Famotidine 20 mg 07/19/24 18:00 07/20/24 08:35 Famotidine 20 Mg Tablet PO Not Given BID ROBY Sodium Chloride 1,000 mls @ 30 mls/hr 07/20/24 08:45 07/20/24 09:10 Sodium Chloride 0.9% IV 07/21/24 08:44 30 mls/hr .Q24H ROBY Administration Metoprolol Succinate 100 mg 07/20/24 09:00 07/20/24 08:35 Metoprolol Succinate Er (24 Hr) 100 Mg Tablet PO Not Given DAILY ROBY Midazolam HCl 2 mg 07/20/24 08:40 07/20/24 09:15 Midazolam 1 Mg/Ml Inj 2 Ml IVP 1 mg Q5M PRN Administration Preop Anxiety Morphine Sulfate 2 mg 07/19/24 14:35 07/20/24 05:50 Morphine 4 Mg/Ml Sdv 1 Ml IVP 2 mg Q4H PRN Administration SEVERE PAIN Imipramine Hcl 50 Mg 0 mg 07/19/24 18:00 07/20/24 08:35 Tablet PO Not Given BID@0600,1800 ROBY Sodium Chloride 1 gm 07/20/24 09:00 07/20/24 08:36 Sodium Chloride 1 Gm Tablet PO Not Given DAILY ROBY Venlafaxine HCl 37.5 mg 07/19/24 18:00 07/20/24 08:36 Venlafaxine Er (24hr) 37.5 Mg Capsule PO Not Given BID ROBY PFSH Anesthesia Medical History Fracture of ulnar styloid Distal radius fracture, left Colon cancer screening History of nonmelanoma skin cancer Risk for coronary artery disease between 10% and 20% in next 10 years Anxiety Hypertension Seborrhea capitis in adult Surgical History Hx of breast biopsy left Hx of tonsillectomy Hx of colonoscopy 1999 Family History Mother Cancer Blood cancer age 52 Denies family history of Diabetes Hypertension Social History Smoking and tobacco/nicotine status: current every day tobacco/nicotine user cigarettes Packs smoked per day: 1 Second hand smoke exposure: Yes Alcohol intake: current Alcohol intake frequency: 0-2 Drinks per Day Alcohol type: wine Substance/Drug Use: unknown Adopted: No Caregiver/support person: No Lives independently: Yes Household members: none Housing: House Marital status: / service: No Current occupational exposures/hazards: No Do you think of yourself as: Straight/Heterosexual Current gender identity: Female Data Anesthesia 07/20/24 05:13 07/20/24 05:13 Short CBC 07/19/24 07/20/24 Range/Units 12:20 05:13 WBC 9.13 8.41 (3.29-11.43) 10^3/uL Hgb 13.50 11.80 (11.27-16.99) g/dL Hct 39.8 35.6 L (36-47) % MCV 94.3 96.0 (85-98) fl Plt Count 251 221 (157-399) 10^3/cmm Neut % (Auto) 65.9 57.9 % Neut # (Auto) 6.01 4.88 (1.8-7.7) 10^3/uL BMP 07/19/24 07/20/24 12:20 05:13 Sodium 136 134 L Potassium 3.8 3.8 Chloride 99 97 L Carbon Dioxide 26 27 BUN 8 8 Creatinine 0.5 0.7 Glucose 102 118 H Calcium 9.4 8.7 Liver Function 07/19/24 07/20/24 Range/Units 12:20 05:13 Total Bilirubin 0.7 0.4 (0.15-1.2) mg/dL AST 16 14 (0-32) U/L ALT 19 12 (0-33) U/L Alkaline Phosphatase 87 83 (35-105) U/L Albumin 4.6 3.9 (3.5-5.2) g/dL Urine 07/19/24 Range/Units 12:48 Urine Color Yellow (Yellow) Urine Appearance Clear (CLEAR) Urine pH 8 A (5-7) Ur Specific [place] 1.005 (1.005-1.030) Urine Protein Neg (Negative) Urine Glucose (UA) Norm (Normal) Urine Ketones Negative (Negative) Urine Nitrate Negative (Negative) Urine Bilirubin Neg (Negative) Ur Leukocyte Esterase Negative (Negative) Urine RBC 0-2 (0-2) /hpf Urine WBC 0-5 (0-5) /hpf Cardiac Studies: No Data to Display
[2024-07-20] MEDS: VANCOMYCIN ADD-Vantage 1,000 MG VIAL 1000 MG XX (10:59)
--- NOTE | 2024-07-20 11:38 | P.OP_ITS ---
Operative Report Date of procedure: July 20, 2024 Pre-op diagnosis: Right femoral neck fracture Post-op diagnosis: same Procedure done: Right hip hemiarthroplasty Surgeon: Louie Wheeler DO Estimated blood loss (mL): 50 Procedure: Right hip hemiarthroplasty Patient brought the op suite after undergoing anesthesia was placed in the lateral cubitus position. Right side up. All areas impingement were well- padded. Patient was then prepped and draped normal sterile fashion. Skin incis ions made over the right lateral hip IT band was split modified Suárez approach was used. Abductors and the capsule were taken anteriorly. Femoral neck cut was made approximately fingerbreadth above the femur. The femoral head was then removed measured to be 47. Next attention was brought to the femur. The switchbox assembler was used. The canal finder was used. The lateralizer was then used. And then the canal was broached to 5. Next the Sera size 5 stem was inserted. 47 head with a negative for neck length was inserted. Hip was reduced to 5 to be stable in all ranges of motion. Wound was then irrigated. Vancomycin powder was placed and wound is closed in a layered fashion FiberWire was used to close the abductor and capsule IT band was closed with 0 Vicryl. And the skin was closed with 2-0 Vicryl and Monocryl suture. Sterile dressings were applied and patient was transferred to the PACU in stable addition.
--- NOTE | 2024-07-20 11:55 | XR_ITS ---
WS: [id number] Right hip, AP view, 07/20/2024 Clinical Data: LOW AP PELVIS POST OP RT HIP Comparison: Right hip, 07/20/2023 Findings: The right hip subcapital fracture has been repaired with the insertion of a right femoral head arthroplasty. The left hip is normal. The remainder of the pelvis is unremarkable. There are surgical gayle in the lateral right subcutaneous tissue. XR/XR hip RT 1V wo/w pel [id number] Impression: Right femoral head arthroplasty.
[2024-07-20] MEDS: fentaNYL 50 mcg/mL INJ 2mL IVP (12:08)
[2024-07-20] MEDS: ondansetron 2 mg/ML SDV 2 mL 4 MG IVP (12:25)
--- NOTE | 2024-07-20 12:55 | PC.NURSE ---
1240 - accepted into room 262 with Sonja RN at side - right hip dressing c/d/i - BP 147/76 - pulse 82 - 92% 2LNC - temp 97.1
--- NOTE | 2024-07-20 12:58 | PC.NURSE ---
Pt returns from surgery. VSS. Family at bedside.
--- NOTE | 2024-07-20 14:14 | ANE.PACU2 ---
Inpatient post-anesthesia follow up: Airway intact: Yes Vital signs: Temperature 97.1 F Pulse Rate 85 Respiratory Rate 18 Blood Pressure 157/83 Pulse Oximetry 90 Oxygen Delivery Me thod [ Nasal Cannula Current Rate & Del quita] Oxygen Delivery Me thod Nasal Cannula Oxygen Flow Rate [ Current Rate 3 & Delivery] Oxygen Flow Rate 2 Fraction of Inspir ed Oxygen Hydration adequate: Yes Nausea and vomiting: No Pain level: 2 Mental status: Altered (Postop delirium)
--- NOTE | 2024-07-20 14:43 | PM.PN ---
Subjective Subjective: Patient is planned for right hip hemiarthroplasty today. Pain has been well-managed. Medications: Reviewed: Yes Vitals/I&O/Wt Last Vital Signs Temp 97.1 F L 07/20/24 13:45 Pulse 85 07/20/24 13:45 Resp 18 07/20/24 13:49 BP 157/83 07/20/24 13:45 Pulse Ox 90 07/20/24 13:45 O2 Del Method Nasal Cannula 07/20/24 13:45 O2 Flow Rate 3 07/20/24 13:21 07/19/24 07/20/24 07/20/24 22:59 06:59 14:59 Intake Total 820 / 820 0 / 820 100 / 100 Output Total 0 / 0 450 / 450 40 / 40 Balance 820 / 820 -450 / 370 60 / 60 Weight last 48 hrs Weight 68.855 kg Weight 66.706 kg Weight 66.224 kg Physical Exam Narrative: General: No acute distress, AO x3 HEENT: PERRLA, pupils bilaterally equal and reactive, pallors not present Chest: Normal vesicular breath sounds, no added sounds, equal good air entry bilaterally CVS: S1-S2 regular, no murmurs, no tachycardia, no gallops, no rubs Abdomen: Soft, nontender, no organomegaly, bowel sounds present Neuro: No focal deficits, no facial deformity, AO x3, power 5/5 in all limbs Urinary Catheter Management: Byers: Cath Placed During This Visit: yes Reason for Continuing Indwelling Catheter: Other Urinary Catheter Date of Insertion: 07/19/24 Urinary Catheter Time of Insertion: 12:55 Data 07/20/24 05:13 07/20/24 05:13 A&P Assessment and plan (1) Subcapital fracture of femur: Patient presenting with a mechanical fall and found to have a right subcapital fracture. Plan for surgical intervention tomorrow. Regular diet now. N.p.o. postmidnight. Pain management with morphine and hydrocodone/APAP as needed. Orthopedics has been consulted from the emergency room. (2) Panic disorder: History of panic disorder, patient states this has been well-controlled recently Continue home doses of imipramine 50 mg twice daily, patient may use home medication as we do not have this on formulary Continue venlafaxine 37.5 mg p.o. twice daily. Continue as needed doxepin and clonidine if needed. (3) Hypertension: Hypertension currently well-controlled. Continue amlodipine 10 mg p.o. daily while in the hospital. Continue metoprolol 100 mg p.o. daily. Qualifiers: Hypertension type: essential hypertension Qualified Code(s): I10 - Essential (primary) hypertension Plan DVT prophylaxis: Lovenox 40 mg subcutaneously daily Full code. July 20, 2024, plan for right hip hemiarthroplasty today PDMP PDMP Reviewed: Not Reviewed Attestations Medical Necessity Statement*: Planned surgery today Coding Level of Care Code Acute Code for [facility] Fwd Diagnoses Subcapital fracture of femur S72.019A Panic disorder F41.0 Essential hypertension I10 Hypertension type: essential hypertension
[2024-07-20] MEDS: famotidine 20 mg Tablet PO (17:00)
[2024-07-20] MEDS: enoxaparin 40 mg/0.4 mL Syringe SUBCUT (20:26)
[2024-07-20] MEDS: venlafaxine ER (24HR) 37.5 mg Capsule PO (20:26)
[2024-07-21] VITALS (11 sets, daily range): BP systolic 120–165; BP diastolic 76–89; PULSE 74–109; RESP 15–18; TEMP 36.3–37.9; O2SAT 93–99
[2024-07-21] MEDS: clindamycin 600 MG/50 ML PREMIX 100 MG IV ×2 (02:01→10:54)
[2024-07-21] MEDS: doxepin 10 mg Capsule PO ×2 (02:01→21:04)
[2024-07-21 06:11] LABS: Basophils % 0.2 %; Eosinophils % 0.2 %; Hematocrit 34.1 % (36-47); Lymphocytes # 1.7 10^3/uL (0.8-4.8); Lymphocytes % 16.8 %; Mean Corpuscular Volume 93.9 fl (85-98); Mean Platelet Volume 9.4 fL (7.4-10.4); Monocytes # 1.3 10^3/uL (0.2-0.9); Monocytes % 13.6 %; Neutrophils # 6.78 10^3/uL (1.8-7.7); Neutrophils % 68.8 %; Nucleated Red Blood Cells % 0 %; Platelet Count 224 10^3/cmm (157-399); Red Blood Count 3.63 10^6/uL (3.85-5.65); Red Cell Distribution Width 11.9 % (12.1-15.1); White Blood Count 9.85 10^3/uL (3.29-11.43)
[2024-07-21 06:31] LABS: Alanine Aminotransferase 12 U/L (0-33); Albumin Level 3.9 g/dL (3.5-5.2); Alkaline Phosphatase 75 U/L (35-105); Anion Gap 14.8 (5-19); Aspartate Amino Transferase 16 U/L (0-32); Blood Urea Nitrogen 6 mg/dL (8-23); Calcium 8.6 mg/dL (8.5-10.5); Carbon Dioxide 28 mmol/L (22-29); Chloride 96 mmol/L (98-107); Creatinine Clr Calc Pharmacy 57.4713; Globulin 2.5 g/dL (1.3-4.6); Glucose 122 mg/dL (65-115); Osmolality Calculated 279 mOsm/kg (285-295); Potassium 3.8 mmol/L (3.5-5.1); Sodium 135 mmol/L (136-145); Total Bilirubin 0.6 mg/dL (0.15-1.2); Total Protein 6.4 g/dL (6.6-8.7)
--- NOTE | 2024-07-21 06:31 | PC.NURSE ---
This nurse went to talk to patient about removing her lowry catheter. Patient refused because she was tired and hadn't slept all night. Patient requested nurse to come back in 30 minutes. This nurse will check back with patient at 6:45am to remove lowry.
--- NOTE | 2024-07-21 07:55 | XR_ITS ---
WS: [id number] Right hip, AP view, 07/21/2024 Clinical Data: post op Comparison: Pelvis, 07/20/2024 Findings: The right femoral head arthroplasty remains in good position. There are stable subcutaneous sutures in the lateral soft tissue. XR/XR hip RT 1V wo/w pel [id number] Impression: Stable right hip arthroplasty.
--- NOTE | 2024-07-21 07:55 | XR_ITS ---
WS: [email or web address] Lumbar spine, 3 views, 07/21/2024 Clinical Data: lbp after a fall Comparison: Lumbar spine, 11/26/2023 Findings: No compression fractures or subluxation is seen. There is minimal disc narrowing at L5-S1. There is osteoarthritis and osteoporosis of the lumbar vertebral bodies. The transverse processes and SI joints are normal. There is calcification in the wall of the abdominal aorta but no aneurysm. There is a right hip arthroplasty. There are sutures overlying the posterior subcutaneous tissue on the lateral view. XR/XR lumbar spine 2-3V* [id number] Impression: 1. Minimal disc narrowing at L5-S1. 2. Osteoarthritis and osteoporosis of the lumbar vertebral bodies
--- NOTE | 2024-07-21 07:56 | P.PN_ITS ---
Subjective 2 Subjective: Patient resting company in bed. States that there is pain when she moves. She has not been up yet with therapy. Vitals/I&O/Wt Last Vital Signs Temp 98.9 F 07/21/24 04:00 Pulse 98 07/21/24 06:00 Resp 16 07/21/24 04:00 BP 165/89 07/21/24 04:00 Pulse Ox 99 07/21/24 04:00 O2 Del Method Nasal Cannula 07/21/24 04:00 O2 Flow Rate 3 07/21/24 04:00 07/20/24 07/21/24 07/21/24 22:59 06:59 14:59 Intake Total 1170 / 1270 50 / 1320 Output Total 0 / 40 1000 / 1040 Balance 1170 / 1230 -950 / 280 Weight last 48 hrs Weight 154 lb 8 oz Weight 151 lb 12.8 oz Weight 147 lb 1 oz Weight 146 lb Physical Exam 2 Narrative: Patient currently sitting up in bed eating breakfast. Bilateral lower extremities neurovascular intact Urinary Catheter Management: Byers: Cath Placed During This Visit: yes, but has since been removed by the nurse Reason for Continuing Indwelling Catheter: Other Urinary Catheter Date of Insertion: 07/19/24 Urinary Catheter Time of Insertion: 12:55 Date Urinary Catheter Removed: 07/21/24 Time Urinary Catheter Discontinued: 06:45 Data 07/21/24 05:19 07/21/24 05:19 A&P Assessment and plan (1) Subcapital fracture of femur: Patient is postop day #1 right hip hemiarthroplasty Up with PT Lovenox for DVT prophylaxis Qualifiers: Encounter type: subsequent encounter Fracture healing: with routine healing Fracture type: closed Laterality: right Qualified Code(s): S72.011D - Unspecified intracapsular fracture of right femur, subsequent encounter for closed fracture with routine healing PDMP PDMP Reviewed: Not Reviewed Attestations 2 Medical Necessity Statement*: Per primary service Coding Level of Care Code Acute Code for [facility] Fwd Diagnoses Closed subcapital fracture of right femur with routine healing, subsequent encounter S72.011D Encounter type: subsequent encounter Fracture healing: with routine healing Fracture type: closed Laterality: right
[2024-07-21] MEDS: morphine 4 mg/mL SDV 1 mL 2 MG IVP (08:20)
[2024-07-21] MEDS: amlodipine 10 mg Tablet PO (08:21)
[2024-07-21] MEDS: sodium chloride 1 gm Tablet PO (08:21)
[2024-07-21] MEDS: venlafaxine ER (24HR) 37.5 mg Capsule PO ×2 (08:21→17:39)
[2024-07-21] MEDS: metoprolol succinate ER (24 HR) 100 mg Tablet PO (08:21)
[2024-07-21] MEDS: famotidine 20 mg Tablet PO ×2 (08:21→17:39)
[2024-07-21] MEDS: ondansetron 2 mg/ML SDV 2 mL 4 MG IVP (09:22)
[2024-07-21] MEDS: oxyCODONE-APAP 5-325 mg Tablet 1 TAB PO (09:23)
--- NOTE | 2024-07-21 17:39 | PM.PN ---
Subjective Subjective: Patient is status post right hip hemiarthroplasty yesterday.Up with physical therapy today. Appears to be somnolent and slow with her responses today compared to day of admission. Suspect this may be related to opiate. Medications: Reviewed: Yes Vitals/I&O/Wt Last Vital Signs Temp 97.4 F L 07/21/24 15:55 Pulse 82 07/21/24 16:07 Resp 16 07/21/24 15:55 BP 121/76 07/21/24 15:55 Pulse Ox 95 07/21/24 15:55 O2 Del Method Nasal Cannula 07/21/24 15:55 O2 Flow Rate 3 07/21/24 08:58 07/21/24 07/21/24 07/21/24 06:59 14:59 22:59 Intake Total 50 / 1320 650 / 650 Output Total 1000 / 1040 Balance -950 / 280 650 / 650 Weight last 48 hrs Weight 70.08 kg Weight 68.855 kg Physical Exam Narrative: General: No acute distress, AO x3 HEENT: PERRLA, pupils bilaterally equal and reactive, pallors not present Chest: Normal vesicular breath sounds, no added sounds, equal good air entry bilaterally CVS: S1-S2 regular, no murmurs, no tachycardia, no gallops, no rubs Abdomen: Soft, nontender, no organomegaly, bowel sounds present Neuro: No focal deficits, no facial deformity, AO x3, power 5/5 in all limbs Urinary Catheter Management: Byers: Cath Placed During This Visit: yes, but has since been removed by the nurse Reason for Continuing Indwelling Catheter: Other Urinary Catheter Date of Insertion: 07/19/24 Urinary Catheter Time of Insertion: 12:55 Date Urinary Catheter Removed: 07/21/24 Time Urinary Catheter Discontinued: 06:45 Data 07/21/24 05:19 07/21/24 05:19 A&P Assessment and plan (1) Subcapital fracture of femur: Patient presenting with a mechanical fall and found to have a right subcapital fracture. Plan for surgical intervention tomorrow. Regular diet now. N.p.o. postmidnight. Pain management with morphine and hydrocodone/APAP as needed. Orthopedics has been consulted from the emergency room. Qualifiers: Encounter type: subsequent encounter Fracture type: closed Laterality: right Fracture healing: with routine healing Qualified Code(s): S72.011D - Unspecified intracapsular fracture of right femur, subsequent encounter for closed fracture with routine healing (2) Panic disorder: History of panic disorder, patient states this has been well-controlled recently Continue home doses of imipramine 50 mg twice daily, patient may use home medication as we do not have this on formulary Continue venlafaxine 37.5 mg p.o. twice daily. Continue as needed doxepin and clonidine if needed. (3) Hypertension: Hypertension currently well-controlled. Continue amlodipine 10 mg p.o. daily while in the hospital. Continue metoprolol 100 mg p.o. daily. Qualifiers: Hypertension type: essential hypertension Qualified Code(s): I10 - Essential (primary) hypertension Plan DVT prophylaxis: Lovenox 40 mg subcutaneously daily Full code. July 20, 2024, plan for right hip hemiarthroplasty today July 21, 2024 Status post right hip hemiarthroplasty yesterday. Tolerated procedure well. Hemoglobin stable. Pain is currently well-controlled. However she is noted to be more somnolent towards evening and slow with her responses. She wakes up easily and has a full conversation however overall slow to respond compared to day of admission. Suspect this may be related to opiate use. Reduce frequency of oxycodone APAP to every 8 hours as needed. Additionally reduce frequency of as needed morphine to 2 mg IV every 8 hours as needed. Add Toradol 15 mg IV every 8 hours as needed with instructions to use Toradol prior to use of opiates. PDMP PDMP Reviewed: Not Reviewed Attestations Medical Necessity Statement*: Adjust opiate dosing , ongoing PT Coding Level of Care Code Acute Code for [facility] Fwd Diagnoses Closed subcapital fracture of right femur with routine healing, subsequent encounter S72.011D Encounter type: subsequent encounter Fracture type: closed Laterality: right Fracture healing: with routine healing Panic disorder F41.0 Essential hypertension I10 Hypertension type: essential hypertension
[2024-07-21] MEDS: ketorolac 30 mg/mL INJ 15 MG IVP (20:29)
[2024-07-21] MEDS: enoxaparin 40 mg/0.4 mL Syringe SUBCUT (20:29)
[2024-07-22] VITALS (7 sets, daily range): BP systolic 124–149; BP diastolic 64–83; PULSE 88–94; RESP 15–19; TEMP 36.8–38.3; O2SAT 90–95; BMI 26.4
[2024-07-22 06:25] LABS: Alanine Aminotransferase 25 U/L (0-33); Albumin Level 3.7 g/dL (3.5-5.2); Alkaline Phosphatase 78 U/L (35-105); Anion Gap 14.6 (5-19); Aspartate Amino Transferase 30 U/L (0-32); Blood Urea Nitrogen 14 mg/dL (8-23); Carbon Dioxide 27 mmol/L (22-29); Chloride 94 mmol/L (98-107); Creatinine Clr Calc Pharmacy 57.3856; Globulin 2.6 g/dL (1.3-4.6); Glucose 108 mg/dL (65-115); Osmolality Calculated 275 mOsm/kg (285-295); Potassium 3.6 mmol/L (3.5-5.1); Sodium 132 mmol/L (136-145); Total Bilirubin 0.6 mg/dL (0.15-1.2); Total Protein 6.3 g/dL (6.6-8.7)
[2024-07-22 07:51] LABS: Basophils % 0.3 %; Eosinophils # 0.2 10^3/uL (0.0-0.8); Eosinophils % 1.8 %; Hematocrit 31.4 % (36-47); Lymphocytes # 2.5 10^3/uL (0.8-4.8); Lymphocytes % 24.1 %; Mean Corpuscular HGB Conc 34.7 g/dL (30-55); Mean Corpuscular Hemoglobin 32.3 pg (27-33); Mean Corpuscular Volume 93.2 fl (85-98); Mean Platelet Volume 10.1 fL (7.4-10.4); Monocytes # 1.4 10^3/uL (0.2-0.9); Neutrophils # 6.35 10^3/uL (1.8-7.7); Neutrophils % 60.4 %; Nucleated Red Blood Cells % 0 %; Platelet Count 227 10^3/cmm (157-399); Red Blood Count 3.37 10^6/uL (3.85-5.65)
[2024-07-22] MEDS: metoprolol succinate ER (24 HR) 100 mg Tablet PO (08:54)
[2024-07-22] MEDS: amlodipine 10 mg Tablet PO (08:54)
[2024-07-22] MEDS: famotidine 20 mg Tablet PO (08:54)
[2024-07-22] MEDS: venlafaxine ER (24HR) 37.5 mg Capsule PO (08:54)
[2024-07-22] MEDS: sodium chloride 1 gm Tablet PO (08:54)
--- NOTE | 2024-07-22 09:54 | XR_ITS ---
WS: [id number] Portable AP supine chest, 07/22/2024 Clinical Data: atelactasis Comparison: Portable chest, 07/19/2024 Findings: There is minimal right midlung opacity which may represent atelectasis. No nodules, masses or effusions are seen. The heart is normal. The pulmonary vascularity is not increased. No pneumonia or pneumothorax is seen. The aortic arch and descending thoracic aorta shows tortuosity. Monitor leads are on the chest wall. XR/XR chest 1V portable [id number] Impression: 1. Right lower lobe opacity which probably represents atelectasis. 2. Atherosclerosis.
--- NOTE | 2024-07-22 10:14 | PC.SOCIAL ---
IMM Update pg 2 of IMM Updated and reviewed w/ patient. Copy provided and copy dated, initialed and placed in chart.
--- NOTE | 2024-07-22 15:31 | P.DS_ITS ---
Discharge Providers Date of Admission: 07/19/24 12:58 Date of Discharge: July 22, 2024 Attending Provider at Admission: Kayy Vargas MD Attending Provider at Discharge: Kayy Vargas MD Primary Care Provider: REBEKAH Paige Diagnoses at Discharge Discharge Diagnosis (1) Subcapital fracture of femur: Status: Acute Qualifiers: Encounter type: subsequent encounter Fracture type: closed Laterality: right Fracture healing: with routine healing Qualified Code(s): S72.011D - Unspecified intracapsular fracture of right femur, subsequent encounter for closed fracture with routine healing (2) Panic disorder: Status: Acute (3) Hypertension: Status: Chronic Qualifiers: Hypertension type: essential hypertension Qualified Code(s): I10 - Essential (primary) hypertension (4) Atelectasis: Status: Acute Reason for Visit Reason for Visit: RT hip pain Hospital Course Hospital Course 74 year old female with a past medical history of hypertension, panic disorder, history of chronic smoking, half pack per day, presenting to the hospital after having a mechanical fall. she was attempting to sit in a brandi rocker chair but the chair gave way and she fell to the floor. She remained on the floor overnight as she felt too sick to get get up. Family was able to assist her next morning. She was found to have a subcapital fracture of the right proximal femur and underwent rigth hip hemiarthorplasty on July 20, 2024. she tolerated the procedure well and participated with physical therapy. She was able to ambulate about 40 feet with assistance and a walker. She elected to return home with home health and PT for continued rehab. Overnight on July 22, 2024 she had a Tmax of 100.9 Fahrenheit. Urinalysis was negative. Chest x-ray showed right atelectasis which was likely the cause of the fever. Spirometer was provided at discharge and patient encouraged to use this every hour.. Additionally given azithromycin 500 mg daily for 3 days. Kiah was discharged today in stable condition. ASA 325 mg daily added for DVT ppx. Physical Exam Narrative: General: No acute distress, AO x3 HEENT: PERRLA, pupils bilaterally equal and reactive, pallors not present Chest: Normal vesicular breath sounds, no added sounds, equal good air entry bilaterally CVS: S1-S2 regular, no murmurs, no tachycardia, no gallops, no rubs Abdomen: Soft, nontender, no organomegaly, bowel sounds present Neuro: No focal deficits, no facial deformity, AO x3, power 5/5 in all limbs Urinary Catheter Management: Byers: Cath Placed During This Visit: yes, but has since been removed by the nurse Reason for Continuing Indwelling Catheter: Other Urinary Catheter Date of Insertion: 07/19/24 Urinary Catheter Time of Insertion: 12:55 Date Urinary Catheter Removed: 07/21/24 Time Urinary Catheter Discontinued: 06:45 Discharge Data Studies Completed and Pending Completed Studies During Hospitalization Category Date Time Status CXRP [XR chest 1V portable [id number]] Routine Exams 07/22/24 09:54 Completed XR chest 1V portable [id number] Stat Exams 07/19/24 12:08 Completed XR hip RT 1V wo/w pel [id number] Routine Exams 07/21/24 07:55 Completed XR hip RT 1V wo/w pel [id number] Stat Exams 07/20/24 11:55 Completed XR hip RT 2-3V wo/w pel* [id number] Stat Exams 07/19/24 11:46 Completed XR lumbar spine 2-3V* [id number] Routine Exams 07/21/24 07:55 Completed Radiology Impressions Hip/Pelvis X-Ray 07/19/24 11:46 IMPRESSION: Subcapital fracture. Hip X-Ray 07/21/24 07:55 Impression: Stable right hip arthroplasty. Lumbar Spine X-Ray 07/21/24 07:55 Impression: 1. Minimal disc narrowing at L5-S1. 2. 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 Right lower lobe opacity which probably represents atelectasis. 2. Atherosclerosis. Laboratory Results WBC 10.50 10^3/uL (3.29-11.43) 07/22/24 05:36 RBC 3.37 10^6/uL (3.85-5.65) L 07/22/24 05:36 Hgb 10.90 g/dL (11.27-16.99) L 07/22/24 05:36 Hct 31.4 % (36-47) L 07/22/24 05:36 MCV 93.2 fl (85-98) 07/22/24 05:36 MCH 32.3 pg (27-33) 07/22/24 05:36 MCHC 34.7 g/dL (30-55) 07/22/24 05:36 RDW 12.0 % (12.1-15.1) L 07/22/24 05:36 Plt Count 227 10^3/cmm (157-399) 07/22/24 05:36 MPV 10.1 fL (7.4-10.4) 07/22/24 05:36 Neut % (Auto) 60.4 % 07/22/24 05:36 Lymph % (Auto) 24.1 % 07/22/24 05:36 [place] % (Auto) 13.0 % 07/22/24 05:36 Eos % (Auto) 1.8 % 07/22/24 05:36 Baso % (Auto) 0.3 % 07/22/24 05:36 Neut # (Auto) 6.35 10^3/uL (1.8-7.7) 07/22/24 05:36 Lymph # (Auto) 2.5 10^3/uL (0.8-4.8) 07/22/24 05:36 [place] # (Auto) 1.4 10^3/uL (0.2-0.9) H 07/22/24 05:36 Eos # (Auto) 0.2 10^3/uL (0.0-0.8) 07/22/24 05:36 Baso # (Auto) 0.0 10^3/uL (0.0-0.1) 07/22/24 05:36 Nucleated RBC % (auto) 0 % 07/22/24 05:36 Nucleated RBCs # 0.0 /100WBC 07/22/24 05:36 Sodium 132 mmol/L (136-145) L 07/22/24 05:12 Potassium 3.6 mmol/L (3.5-5.1) 07/22/24 05:12 Chloride 94 mmol/L (98-107) L 07/22/24 05:12 Carbon Dioxide 27 mmol/L (22-29) 07/22/24 05:12 Anion Gap 14.6 (5-19) 07/22/24 05:12 BUN 14 mg/dL (8-23) 07/22/24 05:12 Creatinine 0.7 mg/dL (0.5-0.9) 07/22/24 05:12 GFR Calculation Not Reportable 07/22/24 05:12 Glucose 108 mg/dL (65-115) 07/22/24 05:12 Calculated Osmolality 275 mOsm/kg (285-295) L 07/22/24 05:12 Calcium 9.0 mg/dL (8.5-10.5) 07/22/24 05:12 Magnesium 2.1 mg/dL (1.7-2.3) 07/20/24 05:13 Total Bilirubin 0.6 mg/dL (0.15-1.2) 07/22/24 05:12 AST 30 U/L (0-32) 07/22/24 05:12 ALT 25 U/L (0-33) 07/22/24 05:12 Alkaline Phosphatase 78 U/L (35-105) 07/22/24 05:12 Total Protein 6.3 g/dL (6.6-8.7) L 07/22/24 05:12 Albumin 3.7 g/dL (3.5-5.2) 07/22/24 05:12 Globulin 2.6 g/dL (1.3-4.6) 07/22/24 05:12 Urine Color Yellow (Yellow) 07/19/24 12:48 Urine Appearance Clear (CLEAR) 07/19/24 12:48 Urine pH 8 (5-7) A 07/19/24 12:48 Ur Specific [place] 1.005 (1.005-1.030) 07/19/24 12:48 Urine Protein Neg (Negative) 07/19/24 12:48 Urine Glucose (UA) Norm (Normal) 07/19/24 12:48 Urine Ketones Negative (Negative) 07/19/24 12:48 Urine Blood 2+ (Negative) H 07/19/24 12:48 Urine Nitrate Negative (Negative) 07/19/24 12:48 Urine Bilirubin Neg (Negative) 07/19/24 12:48 Urine Urobilinogen Neg mg/dL (Negative) 07/19/24 12:48 Ur Leukocyte Esterase Negative (Negative) 07/19/24 12:48 Urine RBC 0-2 /hpf (0-2) 07/19/24 12:48 Urine WBC 0-5 /hpf (0-5) 07/19/24 12:48 Ur Squamous Epith Cells 0-5 /hpf (0-5) 07/19/24 12:48 Amorphous Sediment Not Reportable 07/19/24 12:48 Urine Bacteria None seen /hpf (NONE) 07/19/24 12:48 Hyaline Casts 0-4 /lpf H 07/19/24 12:48 Vitals Last Vital Signs Temp 98.5 F 07/22/24 12:37 Pulse 89 07/22/24 12:37 Resp 19 H 07/22/24 12:37 BP 124/64 07/22/24 12:37 Pulse Ox 90 07/22/24 12:37 O2 Del Method Room Air 07/22/24 12:37 O2 Flow Rate 3 07/21/24 08:58 Discharge Plan Discharge Patient Disposition: Home Health Service Condition: Stable Prescriptions: New oxycodone 5 mg tablet 5 mg PO Q4H PRN (Reason: pain) 7 Days Qty: 42 0RF azithromycin 500 mg tablet See Rx Instructions .ROUTE .COMPLEX Qty: 3 0RF Rx Instructions: For 500 mg dose pack: take 500 mg once daily for 3 days aspirin 325 mg capsule 325 mg PO DAILY 30 Days Qty: 30 0RF Continued clonidine HCl 0.1 mg tablet 0.1 mg PO BID PRN (Reason: hypertensive emergency) Qty: 60 5RF amlodipine 10 mg tablet 10 mg PO DAILY Qty: 30 5RF doxepin 10 mg capsule 10 mg PO TID PRN (Reason: anxiety) Qty: 90 5RF famotidine [Pepcid] 20 mg tablet 20 mg PO BID Qty: 60 5RF imipramine HCl 50 mg tablet 50 mg PO BID Qty: 60 5RF metoprolol succinate 100 mg tablet extended release 24 hr 100 mg PO DAILY Qty: 30 5RF sodium chloride 1,000 mg tablet,soluble 1,000 mg PO DAILY Qty: 30 2RF venlafaxine [Effexor XR] 37.5 mg capsule,extended release 24hr 37.5 mg PO BID nitroglycerin 0.4 mg tablet, sublingual 0.4 mg SUBLINGUAL Q5M PRN (Reason: Chest Pain) calcium carbonate-vitamin D3 [Os-Davie 500 + D3] 500 mg-15 mcg (600 unit) tablet 1 tab PO BID Discharge Orders: Discharge Order (Routine); Ordered 07/22/24 Ordered By: Kayy Kathuria Other Ambulatory Orders: DME: Walker (Order) Location: None Selected Ordered By: Louie Wheeler Referrals: Louie Wheeler, [Physician] - 2 weeks (We have notified your physician's clinic of the need for a follow-up appointment to be scheduled. If you have not heard from them within the next 2 business days, please call them directly. ) Edil Christianson, [employer] [Primary Care Provider] - 07/28/24 2:20 pm () Patient Instructions: Oxycodone/Acetaminophen (By mouth), Aspirin (By mouth), Azithromycin (By mouth), Acute Wound Care (DC), Opioid Safety, Post Anesthesia Care Activity Restrictions/Additional Instructions: You are being discharged from the hospital today during which time you have been under the care of [facility]. You had a right femoral neck fracture. You were treated for this injury with right hip hemiarthroplasty. You may resume you normal diet (including any special diets as directed by your primary doctor) as well as your home medications. You should follow up with you primary doctor if you have any questions regarding medication you took prior to your stay in the hospital. You may take your pain medication as prescribed. After the first few days, take your pain medication as needed. Do not drive or drink alcohol while taking your pain medication. Your injury may increase your risk of developing a blood clot,or DVT, in your arm or leg. This could potentially dislodge and travel to your lungs and become a life threatening condition called apulmonary embolus,or PE. You have been prescribed Lovenox to be taken to prevent this. Frequent movement of the legs will also help prevent this from occurring. If you develop any new or worsening cough, chestpain, bloody sputum or shortness of breath, call 911 or go to the EmergencyRoom. Always keep your surgical incision/dressing clean and dry. If you experience increasing pain at your incision site, redness, swelling, increasing discharge, foul odors, or fevers (greater than 100.4), night sweats or chills you should call the office at the above number. If you feel this is an emergency you should be evaluated in the Emergency Department of a nearby hospital. Orthopedic Patient Instructions Summary: Weight Bearing: Weight-bear as tolerated Activity: As tolerated . Diet: Regular. Splint Care: Keep dressing clean and dry. Anticoagulation: Lovenox Pain Medication: Take only as needed. Ice, rest and elevation will be of great benefit. Please plan to follow-up wlkingsley Wheeler in 2 weeks. You will need to call the clinic [phone] to schedule this visit. Thank you far allowing me to participate in your care. Do not hesitate to call the office with any questions or concerns. Discharge Attestations Time Spent in Discharge Care*: greater than 30 min Quality Metrics Clinical Quality Measures [ No reported AMI, CVA or VTE this stay] Coding Level of Care Code Acute Code for Chg Fwd Diagnoses Closed subcapital fracture of right femur with routine healing, subsequent encounter S72.011D Encounter type: subsequent encounter Fracture type: closed Laterality: right Fracture healing: with routine healing Panic disorder F41.0 Essential hypertension I10 Hypertension type: essential hypertension Atelectasis J98.11
== END 2024-07-22 13:55 | disposition home health service (06) | DRG 522 ==
LOC: ER 12:21 → MEDSURG 12:58
PROVIDERS: Orthopaedic Surgery; Admitting Provider Student in an Organized Health Care Education/Training Program; Emergency Provider Family Medicine; PCP Nurse Practitioner; Visit Provider Student in an Organized Health Care Education/Training Program
DX: S72.011A Unspecified intracapsular fracture of right femur, initial encounter for closed fracture (principal); I10 Essential (primary) hypertension; F41.9 Anxiety disorder, unspecified; F17.210 Nicotine dependence, cigarettes, uncomplicated; F41.0 Panic disorder [episodic paroxysmal anxiety]; Z91.81 History of falling; W07.XXXA Fall from chair, initial encounter; Z79.899 Other long term (current) drug therapy; Z88.1 Allergy status to other antibiotic agents; Z88.0 Allergy status to penicillin; Z88.2 Allergy status to sulfonamides; Z88.8 Allergy status to other drugs, medicaments and biological substances
CPT/HCPCS: 36415; 51702; 71045; 72100; 73501; 73502; 80053; 81001; 83735; 85025; 93005; 96372; 96374; 96375; 97110; 97116; 97161; 97167; 97530; 99285; C1776; J1100; J1171; J1650; J1885; J2250; J2270; J2405; J2704; J2710; J3010; J3370; J3490; J7030; J9999

== ENCOUNTER → 2024-08-09 15:03 | Outpatient (BNVA) | payer MEDICARE, SELFPAY | PROVIDERS: PCP Nurse Practitioner; Visit Provider Orthopaedic Surgery | DX: M25.551 Pain in right hip (principal) | CPT/HCPCS: 73502; 99024 ==

== ENCOUNTER 2024-09-04 05:00 | Outpatient (RCR) | payer MEDICARE, SELFPAY | END 2024-10-03 23:55 | disposition home or self-care (01) | LOC: TPT 05:00 | PROVIDERS: Visit Provider Orthopaedic Surgery | DX: Z98.890 Other specified postprocedural states (principal) | CPT/HCPCS: 97110; 97161 ==

== ENCOUNTER → 2024-09-06 13:22 | Outpatient (BNVA) | payer MEDICARE, SELFPAY | PROVIDERS: PCP Nurse Practitioner; Visit Provider Orthopaedic Surgery | DX: S72.001A Fracture of unspecified part of neck of right femur, initial encounter for closed fracture (principal); X58.XXXA Exposure to other specified factors, initial encounter | CPT/HCPCS: 73502; 99024 ==

== ENCOUNTER → 2024-09-20 13:39 | Outpatient (BNVA) | payer MEDICARE, SELFPAY | PROVIDERS: PCP Nurse Practitioner; Visit Provider Nurse Practitioner Family | DX: L81.4 Other melanin hyperpigmentation (principal); L57.8 Other skin changes due to chronic exposure to nonionizing radiation; D22.5 Melanocytic nevi of trunk; L82.1 Other seborrheic keratosis; Z08 Encounter for follow-up examination after completed treatment for malignant neoplasm; Z85.828 Personal history of other malignant neoplasm of skin; L91.8 Other hypertrophic disorders of the skin; R20.8 Other disturbances of skin sensation; L53.8 Other specified erythematous conditions; L29.89 Other pruritus; Z78.9 Other specified health status; R58 Hemorrhage, not elsewhere classified | CPT/HCPCS: 17000; 17110; 99213 ==

== ENCOUNTER 2024-10-04 05:00 | Outpatient (RCR) | payer MEDICARE, SELFPAY | END 2024-11-03 23:59 | disposition home or self-care (01) | LOC: TPT 05:00 | PROVIDERS: Visit Provider Orthopaedic Surgery | DX: Z47.1 Aftercare following joint replacement surgery (principal); Z96.641 Presence of right artificial hip joint | CPT/HCPCS: 97110; 97116 ==

== ENCOUNTER → 2024-10-17 14:35 | Outpatient (BNVA) | payer MEDICARE, SELFPAY | PROVIDERS: PCP Nurse Practitioner; Visit Provider Nurse Practitioner | DX: E78.2 Mixed hyperlipidemia (principal); E55.9 Vitamin D deficiency, unspecified | CPT/HCPCS: 80053; 80061; 82306; 82607; 84443 ==

== ENCOUNTER → 2024-10-18 13:18 | Outpatient (BNVA) | payer MEDICARE, SELFPAY | PROVIDERS: PCP Nurse Practitioner; Visit Provider Orthopaedic Surgery | DX: Z98.890 Other specified postprocedural states (principal) | CPT/HCPCS: 73502; 99024 ==

== ENCOUNTER 2024-11-04 05:00 | Outpatient (RCR) | payer MEDICARE, SELFPAY | END 2024-12-04 23:59 | disposition home or self-care (01) | LOC: TPT 05:00 | PROVIDERS: PCP Nurse Practitioner; Visit Provider Orthopaedic Surgery | DX: Z47.1 Aftercare following joint replacement surgery (principal); Z96.641 Presence of right artificial hip joint | CPT/HCPCS: 97110; 97116 ==

== ENCOUNTER 2024-12-05 05:00 | Outpatient (RCR) | payer MEDICARE, SELFPAY | END 2025-01-03 23:59 | disposition home or self-care (01) | LOC: TPT 05:00 | PROVIDERS: PCP Nurse Practitioner; Visit Provider Orthopaedic Surgery | DX: Z47.1 Aftercare following joint replacement surgery (principal); Z96.641 Presence of right artificial hip joint | CPT/HCPCS: 97110; 97116 ==

== ENCOUNTER → 2025-01-09 13:26 | Outpatient (BNVA) | payer MEDICARE, SELFPAY | PROVIDERS: PCP Nurse Practitioner; Visit Provider Nurse Practitioner | DX: E87.1 Hypo-osmolality and hyponatremia (principal) | CPT/HCPCS: 80053; 84443 ==

== ENCOUNTER 2025-02-02 12:55 | Outpatient (RCR) | payer MEDICARE, SELFPAY | END 2025-02-03 23:59 | disposition home or self-care (01) | LOC: TPT 12:55 | PROVIDERS: PCP Nurse Practitioner; Visit Provider Orthopaedic Surgery | DX: Z47.1 Aftercare following joint replacement surgery (principal); Z96.641 Presence of right artificial hip joint | CPT/HCPCS: 97110; 97116 ==

== ENCOUNTER 2025-02-28 13:07 | Outpatient (RCR) | payer MEDICARE, SELFPAY | END 2025-03-05 23:59 | disposition home or self-care (01) | LOC: TPT 13:07 | PROVIDERS: PCP Nurse Practitioner; Visit Provider Orthopaedic Surgery | DX: Z47.1 Aftercare following joint replacement surgery (principal); Z96.641 Presence of right artificial hip joint | CPT/HCPCS: 97110; 97116 ==

== ENCOUNTER 2025-03-09 13:03 | Outpatient (RCR) | payer MEDICARE, SELFPAY | END 2025-03-13 10:01 | disposition home or self-care (01) | LOC: TPT 13:03 | PROVIDERS: PCP Nurse Practitioner; Visit Provider Orthopaedic Surgery | DX: Z47.1 Aftercare following joint replacement surgery (principal); Z96.641 Presence of right artificial hip joint | CPT/HCPCS: 97110 ==